=== PATIENT | male | born 1970 | race Caucasian/White ===

== ENCOUNTER 2022-08-02 14:40 | Emergency (ER) | payer OTHER, SELFPAY ==
[2022-08-02] VITALS (8 sets, daily range): BP systolic 170–226; BP diastolic 100–168; PULSE 96; RESP 18; TEMP 36.9; O2SAT 97–100; BMI 42.2
--- NOTE | 2022-08-02 15:47 | W.ED.ABDPA2 ---
HPI - Abdominal Pain General: Chief Complaint: Abdominal Pain Stated Complaint: Sent from , possible appy Time Seen by Provider: 08/02/22 15:44 Source: patient Mode of arrival: ambulatory History of Present Illness: 52 yo male resents emergency room complaining of 2 weeks of abdominal pain he had localizes it to the right lower quadrant. No vomiting or diarrhea. Pain has been sharp and intermittent in nature worse after he has a bowel movement. He denies any medication on hematemesis cough cramps he has a history of renal stones he has not had any hematuria he states he does not feel like what he had in the past with nephrolithiasis. MD elicited complaint: abdominal pain Pertinent past history: none Onset (ago): hour(s) Pain Consistency: constant Location: None Severity: moderate Quality: stabbing and sharp Radiation: none Migration to: no migration Exacerbating factors: nothing Associated Symptoms: Denies anorexia, belching, bloating, change in bowel habits, change in stool character, chills, coffee ground emesis, constipation, GI cramping, diarrhea, dyspepsia, dysuria, excessive flatus, fever(s), heartburn, hematochezia, hematuria, hematemesis, fecal incontinence, loose stools, melena, nausea, poor appetite, syncope and vomiting Review of Systems Const: Denies: fever(s), chills, fatigue or malaise ENMT: Denies: throat pain, ear or mastoid pain, nasal discharge or nasal congestion Card: Denies: syncope Resp: Denies: dyspnea, productive cough or non-productive cough GI: Denies: abdominal pain, nausea, vomiting, hematemesis, coffee ground emesis, heartburn, diarrhea, constipation, bloating, GI cramping, belching, excessive flatus, fecal incontinence, change in bowel habits, change in stool character, hematochezia or melena : Denies: dysuria, urinary frequency, urinary urgency or hematuria Skin/Breast: Denies: rash or pruritus PFSH ED PFSH: Medical History (Updated 08/02/22 @ 18:05 by Ned Velazquez DO) Morbid obesity Surgical History (Updated 08/02/22 @ 17:01 by Ned Velazquez DO) No pertinent past surgical history Physical Exam Const: COMMON NORMALS: no acute distress GENERAL APPEARANCE: cooperative and comfortable ORIENTATION/CONSCIOUSNESS: Yes awake, Yes oriented to person, Yes oriented to place and Yes oriented to time HENMT: COMMON NORMALS: normocephalic, atraumatic and hearing grossly normal bilaterally HEAD & SCALP: normocephalic and atraumatic Resp: COMMON NORMALS: normal respiratory effort, No retractions, No use of accessory muscles and clear to auscultation bilaterally AUSCULTATION: clear to auscultation bilaterally Cardio: COMMON NORMALS: regular rate, regular rhythm and No murmurs present (Cardio) RATE: regular rate RHYTHM: regular rhythm GI: COMMON NORMALS: No hepatosplenomegaly present AUSCULTATION: Yes normoactive bowel sounds PALPATION: Yes Tenderness to palpation present (GI) Details: RLQ, No Guarding due to palpation present (GI) and Yes No hepatosplenomegaly present Extremity: COMMON NORMALS: normal to inspection, capillary refill normal, no clubbing, cyanosis or edema, no calf tenderness and no pedal edema Neuro: SENSORIUM/ORIENTATION: Yes oriented to person, Yes oriented to place and Yes oriented to time Skin: COMMON NORMALS: no rashes or lesions noted GENERAL SKIN EXAM: no rashes or lesions noted Course Vital Signs: Vital signs: Vital Signs Temperature 98.4 F 08/02/22 14:59 Pulse Rate 96 08/02/22 14:59 Respiratory Rate 18 08/02/22 14:59 Blood Pressure 170/100 08/02/22 18:24 Pulse Oximetry 100 08/02/22 18:00 Oxygen Delivery Me thod 08/02/22 16:13 MDM - Abdominal Pain Medical Decision Making Labs imaging and EKG reviewed. CT does not show any acute changes. Laboratory tests unremarkable. Reviewed with the patient encouraged him to use [id number] PPI. Secondarily he has significant hypertension he states he is notices before whenever he spent at the doctor's office or any kind of medical encounter was given hydralazine and amlodipine here as his blood pressure was quite significantly elevated will discharge home on 5 mg of amlodipine daily. Patient has in the past when he is taking antihypertensives when he gets home he ends up being hypotensive. Advised him to follow-up with his primary care doctor within the next 7 to 10 days to reevaluate if his hypotension persists may need further adjustments. Return if he has more abdominal pain or other issues. Medical Records I reviewed the patient's medical records. Lab Data I reviewed the patient's lab results. 08/02/22 16:00 08/02/22 16:00 Labs/Radiology: Radiology Impressions Abdomen/Pelvis CT 08/02/22 16:06 IMPRESSION: 1. No acute abnormality in the abdomen or pelvis. 2. Bilateral nonobstructing renal stones. The largest on in the left kidney is in the left renal pelvis. No hydroureteronephrosis. 3. Incidental/nonacute findings are listed in the report. Laboratory Results WBC 8.3 10^3/uL (4.0-10.0) 08/02/22 16:00 RBC 5.37 10^6/uL (4.1-5.3) H 08/02/22 16:00 Hgb 16.9 g/dL (11.7-16.6) H 08/02/22 16:00 Hct 49.0 % (42.0-52.0) 08/02/22 16:00 MCV 91.2 fl (80-94) 08/02/22 16:00 MCH 31.5 pg (28.0-34.0) 08/02/22 16:00 MCHC 34.5 g/dL (30.0-36.0) 08/02/22 16:00 RDW 12.1 % (12.1-15.1) 08/02/22 16:00 Plt Count 242 10^3/cmm (130-400) 08/02/22 16:00 MPV 10.2 fL (7.4-10.4) 08/02/22 16:00 Neut % (Auto) 61.1 % 08/02/22 16:00 Lymph % (Auto) 29.4 % 08/02/22 16:00 [place] % (Auto) 6.7 % 08/02/22 16:00 Eos % (Auto) 1.6 % 08/02/22 16:00 Baso % (Auto) 1.0 % 08/02/22 16:00 Neut # (Auto) 5.06 10^3/uL (1.8-7.7) 08/02/22 16:00 Lymph # (Auto) 2.4 10^3/uL (0.8-4.8) 08/02/22 16:00 [place] # (Auto) 0.6 10^3/uL (0.2-0.9) 08/02/22 16:00 Eos # (Auto) 0.1 10^3/uL (0.0-0.8) 08/02/22 16:00 Baso # (Auto) 0.1 10^3/uL (0.0-0.1) 08/02/22 16:00 Nucleated RBC % (auto) 0 % 08/02/22 16:00 Nucleated RBCs # 0.0 /100WBC 08/02/22 16:00 Sodium 141 mmol/L (136-145) 08/02/22 16:00 Potassium 4.0 mmol/L (3.5-5.1) 08/02/22 16:00 Chloride 103 mmol/L (98-107) 08/02/22 16:00 Carbon Dioxide 28 mmol/L (22-29) 08/02/22 16:00 Anion Gap 14.0 (5-19) 08/02/22 16:00 BUN 14 mg/dL (6-20) 08/02/22 16:00 Creatinine 0.8 mg/dL (0.7-1.2) 08/02/22 16:00 GFR Calculation 102.3 mL/min (90-130) 08/02/22 16:00 Glucose 93 mg/dL (65-115) 08/02/22 16:00 Calculated Osmolality 292 mOsm/kg (285-295) 08/02/22 16:00 Calcium 10.5 mg/dL (8.5-10.5) 08/02/22 16:00 Total Bilirubin 0.5 mg/dL (0.15-1.2) 08/02/22 16:00 AST 20 U/L (0-40) 08/02/22 16:00 ALT 25 U/L (0-41) 08/02/22 16:00 Alkaline Phosphatase 124 U/L (40-130) 08/02/22 16:00 Total Protein 7.9 g/dL (6.6-8.7) 08/02/22 16:00 Albumin 4.6 g/dL (3.5-5.2) 08/02/22 16:00 Globulin 3.3 g/dL (1.3-4.6) 08/02/22 16:00 Lipase 12 U/L (13-60) L 08/02/22 16:00 Discharge Plan Discharge Patient Disposition: Home Clinical Impression: Abdominal pain, Benign essential HTN Condition: Stable Prescriptions: New amlodipine 5 mg tablet 5 mg PO DAILY Qty: 30 0RF Discharge Orders: Discharge ED (Routine); Ordered 08/02/22 Ordered By: Ned Velazquez Referrals: Melanie Bocanegra FNP [Primary Care Provider] - Discharge Diet: Usual diet Discharge Activity: Increase activity as tolerated Patient Instructions: Abdominal Pain (ED), Opioid Safety, Pain Management Activity Restrictions/Additional Instructions: You are seen for abdominal pain emergency room your laboratory tests and your CT of your abdomen were unremarkable. Incidental notation of your blood pressure being markedly elevated recommend that you start amlodipine 5 mg daily follow-up with your primary care doctor within the next 7 to 10 days. If you have continued symptoms of abdominal pain recommend starting [id number] Pepcid or omeprazole and following up with your doctor for further evaluation. Coding Level of Care Code ED Weight Yardage Checker for Jesu Nash
--- NOTE | 2022-08-02 16:06 | CTR_ITS ---
PROCEDURE INFORMATION: Exam: CT Abdomen And Pelvis Without Contrast Exam date and time: 08/02/2022 4:29 PM Age: 52 years old Clinical indication: Pain; Other: Rlq; Additional info: Abdominal pain TECHNIQUE: Imaging protocol: Computed tomography of the abdomen and pelvis without contrast. Sagittal and coronal reformatted images were created and reviewed. Radiation optimization: All CT scans at this facility use at least one of these dose optimization techniques: automated exposure control; mA and/or kV adjustment per patient size (includes targeted exams where dose is matched to clinical indication); or iterative reconstruction. COMPARISON: No relevant prior studies available. RADIATION DOSE METRICS: Total DLP (mGy-cm): 1633.43 FINDINGS: Limitations: Evaluation of solid organs and vasculature is limited without intravenous contrast. Lungs: Visualized lungs are clear. Pleural spaces: No pleural effusion. Heart: Visualized portions of the heart are unremarkable. Liver: The liver is unremarkable. Gallbladder and bile ducts: The gallbladder is unremarkable. No biliary ductal dilatation. Pancreas: The pancreas is unremarkable. No pancreatic ductal dilatation. Spleen: The spleen is unremarkable. Adrenal glands: The right and left adrenal glands are unremarkable. Kidneys and ureters: Nonobstructing stones in both right and left kidneys. Largest on the right measures 4 mm. Largest on the left is in the left renal pelvis and measures 6 mm. The right and left ureters are unremarkable. No hydroureteronephrosis. Stomach and bowel: No obstruction. No mucosal thickening. Appendix: The appendix is visualized and is unremarkable. No findings to suggest acute appendicitis. Intraperitoneal space: No free intraperitoneal air. No ascites. No loculated fluid collections to suggest an abscess. Vasculature: No evidence for aortic aneurysm. Lymph nodes: No lymphadenopathy. Urinary bladder: The bladder is unremarkable. Reproductive: Nonspecific parenchymal calcifications in the prostate gland. Bones/joints: Mild degenerative changes in the visualized spine. Soft tissues: No acute abnormality in the extra-abdominal soft tissues. CT/CT abdomen pelvis wo con [id number] IMPRESSION: 1. No acute abnormality in the abdomen or pelvis. 2. Bilateral nonobstructing renal stones. The largest on in the left kidney is in the left renal pelvis. No hydroureteronephrosis. 3. Incidental/nonacute findings are listed in the report.
[2022-08-02 16:18] LABS: Basophils # 0.1 10^3/uL (0.0-0.1); Eosinophils # 0.1 10^3/uL (0.0-0.8); Eosinophils % 1.6 %; Hemoglobin 16.9 g/dL (11.7-16.6); Lymphocytes # 2.4 10^3/uL (0.8-4.8); Lymphocytes % 29.4 %; Mean Corpuscular HGB Conc 34.5 g/dL (30.0-36.0); Mean Corpuscular Hemoglobin 31.5 pg (28.0-34.0); Mean Corpuscular Volume 91.2 fl (80-94); Mean Platelet Volume 10.2 fL (7.4-10.4); Monocytes # 0.6 10^3/uL (0.2-0.9); Monocytes % 6.7 %; Neutrophils # 5.06 10^3/uL (1.8-7.7); Neutrophils % 61.1 %; Nucleated Red Blood Cells % 0 %; Platelet Count 242 10^3/cmm (130-400); Red Blood Count 5.37 10^6/uL (4.1-5.3); Red Cell Distribution Width 12.1 % (12.1-15.1); White Blood Count 8.3 10^3/uL (4.0-10.0)
[2022-08-02 16:30] LABS: Alanine Aminotransferase 25 U/L (0-41); Albumin Level 4.6 g/dL (3.5-5.2); Alkaline Phosphatase 124 U/L (40-130); Aspartate Amino Transferase 20 U/L (0-40); Blood Urea Nitrogen 14 mg/dL (6-20); Calcium 10.5 mg/dL (8.5-10.5); Carbon Dioxide 28 mmol/L (22-29); Chloride 103 mmol/L (98-107); Globulin 3.3 g/dL (1.3-4.6); Glomerular Filtration Rate 102.3 mL/min (90-130); Glucose 93 mg/dL (65-115); Lipase 12 U/L (13-60); Osmolality Calculated 292 mOsm/kg (285-295); Sodium 141 mmol/L (136-145); Total Bilirubin 0.5 mg/dL (0.15-1.2); Total Protein 7.9 g/dL (6.6-8.7)
[2022-08-02] MEDS: hyDRALAzine 20 mg/mL INJ 1 mL IVP ×2 (17:20→17:51)
[2022-08-02] MEDS: amlodipine 10 mg Tablet PO (17:51)
== END 2022-08-02 18:31 | disposition home or self-care (01) ==
PROVIDERS: Emergency Provider Family Medicine; PCP Registered Nurse
DX: R10.31 Right lower quadrant pain (principal); I10 Essential (primary) hypertension
CPT/HCPCS: 74176; 80053; 83690; 85025; 96374; 96375; 99285; J0360

== ENCOUNTER 2024-08-28 05:58 | Observation (INO) | payer OTHER, SELFPAY ==
[2024-08-28] VITALS (21 sets, daily range): BP systolic 138–198; BP diastolic 105–136; PULSE 77–125; RESP 14–19; TEMP 36.4–36.8; O2SAT 93–100; BMI 42.2
--- NOTE | 2024-08-28 06:09 | ECG_ITS ---
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 Measurements Intervals [place] Rate: 91 P: 27 MD: 136 QRS: 8 QRSD: 98 T: 13 QT: 337 QTc: 416 Interpretive Statements SINUS RHYTHM MODERATE VOLTAGE CRITERIA FOR LVH, CONSIDER NORMAL VARIANT [MEETS CRITERIA IN ONE OF: R(aVL), S(V1), R(V5), R(V5/V6)+S(V1)] No previous ECG available for comparison Electronically Signed On 08-29-2024 09:03:43 [employer]POR[employer] by Dieter Llanes M.D. [id number]
--- NOTE | 2024-08-28 06:12 | CTR_ITS ---
PROCEDURE INFORMATION: Exam: CT Head Without Contrast Exam date and time: 08/28/2024 6:16 AM Age: 54 years old Clinical indication: Stroke-like symptoms; Lt upper extremity and lt lower extremity weakness; Additional info: Symptoms of acute stroke TECHNIQUE: Imaging protocol: Computed tomography of the head without contrast. Radiation optimization: All CT scans at this facility use at least one of these dose optimization techniques: automated exposure control; mA and/or kV adjustment per patient size (includes targeted exams where dose is matched to clinical indication); or iterative reconstruction. Other technique: STROKE PROTOCOL was implemented. COMPARISON: No relevant prior studies available. 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 Probable small remote infarct in the corpus callosum. Patchy hypoattenuation in the periventricular and subcortical white matter, consistent with chronic small vessel ischemia. No CT evidence of acute ischemia. No acute hemorrhage. No mass effect or midline shift. Cerebral ventricles: No ventriculomegaly. Paranasal sinuses: Visualized sinuses are unremarkable. No fluid levels. Mastoid air cells: Visualized mastoid air cells are well aerated. Bones: Unremarkable. No acute fracture. Soft tissues: A number of partially calcified subcutaneous nodules are seen in the scalp. CT/CT head thrombolytic 14049 IMPRESSION: No acute intracranial abnormality. Please note that MRI is more sensitive for early changes of acute ischemia. ASSESSMENT: ASPECTS (Dorie Stroke Program Early CT Score) is 10.
[2024-08-28 06:18] LABS: Glucose Point of Care 107 mg/dL (70-110)
[2024-08-28 06:20] LABS: Basophils # 0.1 10^3/uL (0.0-0.1); Basophils % 1.1 %; Eosinophils # 0.1 10^3/uL (0.0-0.8); Eosinophils % 1.6 %; Hematocrit 48.5 % (37-53); Lymphocytes # 2.4 10^3/uL (0.8-4.8); Lymphocytes % 29.4 %; Mean Corpuscular HGB Conc 34.8 g/dL (30-55); Mean Corpuscular Hemoglobin 31.5 pg (27-33); Mean Corpuscular Volume 90.3 fl (82-101); Mean Platelet Volume 9.6 fL (7.4-10.4); Monocytes # 0.7 10^3/uL (0.2-0.9); Monocytes % 7.9 %; Neutrophils # 4.91 10^3/uL (1.8-7.7); Neutrophils % 59.8 %; Nucleated Red Blood Cells % 0 %; Platelet Count 255 10^3/cmm (157-399); Red Blood Count 5.37 10^6/uL (3.85-5.65); Red Cell Distribution Width 12.4 % (12.1-15.1); White Blood Count 8.22 10^3/uL (3.29-11.43)
[2024-08-28 06:33] LABS: INR 0.78 (0.8-1.2)
[2024-08-28 06:37] LABS: Alanine Aminotransferase 22 U/L (0-41); Albumin Level 4.6 g/dL (3.5-5.2); Alkaline Phosphatase 139 U/L (40-130); Anion Gap 15.5 (5-19); Aspartate Amino Transferase 18 U/L (0-40); Blood Urea Nitrogen 13 mg/dL (6-20); Calcium 10.1 mg/dL (8.5-10.5); Carbon Dioxide 27 mmol/L (22-29); Chloride 102 mmol/L (98-107); Creatinine Clr Calc Pharmacy 143.9506; Globulin 2.9 g/dL (1.3-4.6); Glomerular Filtration Rate 88.6 mL/min (90-130); Glucose 114 mg/dL (65-115); Osmolality Calculated 291 mOsm/kg (285-295); Potassium 4.5 mmol/L (3.5-5.1); Sodium 140 mmol/L (136-145); Total Bilirubin 0.4 mg/dL (0.15-1.2); Total Protein 7.5 g/dL (6.6-8.7)
--- NOTE | 2024-08-28 06:39 | W.ED.WEAKNES ---
HPI - Weakness General: Chief complaint: Weakness Stated complaint: left side weakness and numbess Time Seen by Provider: 08/28/24 06:10 PFSH ED PFSH: Medical History (Updated 08/10/22 @ 00:01 by WIL Elise) Morbid obesity Surgical History (Updated 08/02/22 @ 17:01 by Ned Velazquez DO) No pertinent past surgical history Course Vital Signs: Vital signs: Vital Signs Temperature 97.7 F 08/28/24 06:02 Pulse Rate 103 H 08/28/24 06:02 Respiratory Rate 18 08/28/24 06:02 Blood Pressure 195/111 08/28/24 06:02 Pulse Oximetry 97 08/28/24 06:02 MDM - Weakness Lab Data 08/28/24 06:15 08/28/24 06:[address] 08/28/24 06:12 IMPRESSION: No acute intracranial abnormality. Please note that MRI is more sensitive for early changes of acute ischemia. ASSESSMENT: ASPECTS (Dorie Stroke Program Early CT Score) is 10. Laboratory Results WBC 8.22 10^3/uL (3.29-11.43) 08/28/24 06:15 RBC 5.37 10^6/uL (3.85-5.65) 08/28/24 06:15 Hgb 16.90 g/dL (11.27-16.99) 08/28/24 06:15 Hct 48.5 % (37-53) 08/28/24 06:15 MCV 90.3 fl (82-101) 08/28/24 06:15 MCH 31.5 pg (27-33) 08/28/24 06:15 MCHC 34.8 g/dL (30-55) 08/28/24 06:15 RDW 12.4 % (12.1-15.1) 08/28/24 06:15 Plt Count 255 10^3/cmm (157-399) 08/28/24 06:15 MPV 9.6 fL (7.4-10.4) 08/28/24 06:15 Neut % (Auto) 59.8 % 08/28/24 06:15 Lymph % (Auto) 29.4 % 08/28/24 06:15 [place] % (Auto) 7.9 % 08/28/24 06:15 Eos % (Auto) 1.6 % 08/28/24 06:15 Baso % (Auto) 1.1 % 08/28/24 06:15 Neut # (Auto) 4.91 10^3/uL (1.8-7.7) 08/28/24 06:15 Lymph # (Auto) 2.4 10^3/uL (0.8-4.8) 08/28/24 06:15 [place] # (Auto) 0.7 10^3/uL (0.2-0.9) 08/28/24 06:15 Eos # (Auto) 0.1 10^3/uL (0.0-0.8) 08/28/24 06:15 Baso # (Auto) 0.1 10^3/uL (0.0-0.1) 08/28/24 06:15 Nucleated RBC % (auto) 0 % 08/28/24 06:15 Nucleated RBCs # 0.0 /100WBC 08/28/24 06:15 PT 11.40 SECONDS (12.1-14.9) L 08/28/24 06:15 INR 0.78 (0.8-1.2) L 08/28/24 06:15 APTT 28.0 SECONDS (23.9-36.7) 08/28/24 06:15 Sodium 140 mmol/L (136-145) 08/28/24 06:15 Potassium 4.5 mmol/L (3.5-5.1) 08/28/24 06:15 Chloride 102 mmol/L (98-107) 08/28/24 06:15 Carbon Dioxide 27 mmol/L (22-29) 08/28/24 06:15 Anion Gap 15.5 (5-19) 08/28/24 06:15 BUN 13 mg/dL (6-20) 08/28/24 06:15 Creatinine 0.9 mg/dL (0.7-1.2) 08/28/24 06:15 GFR Calculation 88.6 mL/min (90-130) L 08/28/24 06:15 Glucose 114 mg/dL (65-115) 08/28/24 06:15 POC Glucose 107 mg/dL (70-110) 08/28/24 06:06 Calculated Osmolality 291 mOsm/kg (285-295) 08/28/24 06:15 Calcium 10.1 mg/dL (8.5-10.5) 08/28/24 06:15 Total Bilirubin 0.4 mg/dL (0.15-1.2) 08/28/24 06:15 AST 18 U/L (0-40) 08/28/24 06:15 ALT 22 U/L (0-41) 08/28/24 06:15 Alkaline Phosphatase 139 U/L (40-130) H 08/28/24 06:15 Total Protein 7.5 g/dL (6.6-8.7) 08/28/24 06:15 Albumin 4.6 g/dL (3.5-5.2) 08/28/24 06:15 Globulin 2.9 g/dL (1.3-4.6) 08/28/24 06:15 Discharge Plan Discharge Condition: Stable Prescriptions: No Action amlodipine 5 mg tablet 5 mg PO DAILY Qty: 30 0RF Referrals: Melanie Bocanegra FNP [Primary Care Provider] - Coding Level of Care Code ED Plaster Tender for Chg Fwd Related Data Previous Rx's Medication Instructions Recorded amlodipine 5 mg tablet 5 mg PO DAILY #30 tabs 08/02/22 Allergies Allergy/AdvReac Type Severity Reaction Status Date / Time No Known Allergies Allergy Verified 08/28/24 06:02 NIH stroke score NIHSS Level Of Consciousness - 1a: 0 Level Of Consciousness Questions - 1b: Both Correct Level Of Consciousness Commands - 1c: Both Correct Best Gaze - 2: Normal Visual [place] - 3: No Visual Loss Facial Palsy - 4: Normal Motor Arm Right - 5: Drift Motor Leg Right - 6: Effort Against [place] Motor Leg Left - 6: No Drift Limb Ataxia - 7: Absent Sensory - 8: Normal Best Language - 9: No Aphasia Dysarthia - 10: Normal Extinction And Inattention - 11: 0
--- NOTE | 2024-08-28 06:41 | W.ED.WEAKNES ---
HPI - Weakness General: Chief complaint: Weakness Stated complaint: left side weakness and numbess Time Seen by Provider: 08/28/24 06:10 Source: patient Mode of arrival: ambulatory Limitations: no limitations History of Present Illness: 54-year-old male has a history of hypertension states he went bed last night at 8 PM he states he woke up this morning around 2 AM states when he got up he noticed he is having some right sided weakness phalanx having a hard time walking. He states that he does have right sided arm leg weakness is able to walk but states he feels like the right leg is very weak he denies any headache denies any chest pain he denies slurred speech. No history of stroke in the past. Associated symptoms: Denies chest pain, chills, fever(s), headache(s), nausea or vomiting Review of Systems Const: Denies: fever(s), chills, body aches or change in appetite ENMT: Denies: throat pain or dental pain Card: Denies: chest pain Resp: Denies: dyspnea GI: Denies: abdominal pain, nausea, vomiting or diarrhea Musc: Denies: neck pain or back pain Skin/Breast: Denies: rash Neuro: Denies: headache(s) PFSH ED PFSH: Medical History (Updated 08/10/22 @ 00:01 by WIL Elise) Morbid obesity Surgical History (Updated 08/02/22 @ 17:01 by Ned Velazquez DO) No pertinent past surgical history Physical Exam Const: COMMON NORMALS: patient oriented x3 HENMT: COMMON NORMALS: normocephalic and atraumatic HEAD & SCALP: normocephalic and atraumatic Eye: COMMON NORMALS: Equal, round and reactive pupils present and EOMs intact bilaterally PUPIL: Yes Equal, round and reactive pupils present Neck/C-Spine: COMMON NORMALS: full ROM and supple Chest: COMMONS NORMALS: normal inspection of the chest Resp: COMMON NORMALS: normal respiratory effort, No retractions, No use of accessory muscles and clear to auscultation bilaterally AUSCULTATION: clear to auscultation bilaterally Cardio: COMMON NORMALS: regular rate, regular rhythm and No murmurs present (Cardio) RATE: regular rate RHYTHM: regular rhythm GI: COMMON NORMALS: Normal to inspection, nondistended, normoactive bowel sounds present, Soft to palpation, non-tender and no masses PALPATION: Yes Soft to palpation Extremity: COMMON NORMALS: normal to inspection and full ROM Neuro: COMMON NORMALS: patient oriented x3 CRANIAL NERVES: Yes CN normal except as noted SPEECH: speech normal OTHER: No left-sided weakness has a slight right sided arm drift worsening drift on the right leg. Psych: COMMON NORMALS: mental status grossly normal, Normal thought process present and cooperative THOUGHT PROCESS: Normal thought process present Skin: COMMON NORMALS: no rashes or lesions noted and no wounds GENERAL SKIN EXAM: no rashes or lesions noted Course Vital Signs: Vital signs: Vital Signs Temperature 97.7 F 08/28/24 06:02 Pulse Rate 125 H 08/28/24 07:01 Respiratory Rate 18 08/28/24 06:02 Blood Pressure 198/131 08/28/24 07:01 Pulse Oximetry 93 08/28/24 07:01 MDM - Weakness Medical Decision Making Patient presents with right sided weakness possible CVA he is not a TNKase candidate as his last known well was last night. CTA showed no large clot he is not a thrombectomy candidate I spoke to the hospitalist will admit at this time for further workup Medical Records I reviewed the patient's medical records. Lab Data I reviewed the patient's lab results. 08/28/24 06:15 08/28/24 06:[address] 08/28/24 06:12 IMPRESSION: No acute intracranial abnormality. Please note that MRI is more sensitive for early changes of acute ischemia. ASSESSMENT: ASPECTS ([place] Stroke Program Early CT Score) is 10. ADDENDUM: 08/28/24 0705 Confirmed receipt of report by Dr. Andino, who has no further questions. ADDENDUM: 08/28/24 6460 The scalp lesions are likely to reflect sebaceous cyst. Head/Neck CTA 08/28/24 06:42 IMPRESSION: 1. No acute vascular abnormality. 2. Additional findings, as above. IMPRESSION: 1. No acute vascular abnormality. 2. Additional findings, as above. REFERENCES: NASCET CRITERIA. The degree of stenosis in the cervical segment of the internal carotid artery is based on NASCET criteria. Normal is no stenosis. Mild is less than 50% stenosis. Moderate is 50-69% stenosis. Severe is 70% to 99% stenosis. Total occlusion is no detectable patent lumen. Laboratory Results WBC 8.22 10^3/uL (3.29-11.43) 08/28/24 06:15 RBC 5.37 10^6/uL (3.85-5.65) 08/28/24 06:15 Hgb 16.90 g/dL (11.27-16.99) 08/28/24 06:15 Hct 48.5 % (37-53) 08/28/24 06:15 MCV 90.3 fl (82-101) 08/28/24 06:15 MCH 31.5 pg (27-33) 08/28/24 06:15 MCHC 34.8 g/dL (30-55) 08/28/24 06:15 RDW 12.4 % (12.1-15.1) 08/28/24 06:15 Plt Count 255 10^3/cmm (157-399) 08/28/24 06:15 MPV 9.6 fL (7.4-10.4) 08/28/24 06:15 Neut % (Auto) 59.8 % 08/28/24 06:15 Lymph % (Auto) 29.4 % 08/28/24 06:15 [place] % (Auto) 7.9 % 08/28/24 06:15 Eos % (Auto) 1.6 % 08/28/24 06:15 Baso % (Auto) 1.1 % 08/28/24 06:15 Neut # (Auto) 4.91 10^3/uL (1.8-7.7) 08/28/24 06:15 Lymph # (Auto) 2.4 10^3/uL (0.8-4.8) 08/28/24 06:15 [place] # (Auto) 0.7 10^3/uL (0.2-0.9) 08/28/24 06:15 Eos # (Auto) 0.1 10^3/uL (0.0-0.8) 08/28/24 06:15 Baso # (Auto) 0.1 10^3/uL (0.0-0.1) 08/28/24 06:15 Nucleated RBC % (auto) 0 % 08/28/24 06:15 Nucleated RBCs # 0.0 /100WBC 08/28/24 06:15 PT 11.40 SECONDS (12.1-14.9) L 08/28/24 06:15 INR 0.78 (0.8-1.2) L 08/28/24 06:15 APTT 28.0 SECONDS (23.9-36.7) 08/28/24 06:15 Sodium 140 mmol/L (136-145) 08/28/24 06:15 Potassium 4.5 mmol/L (3.5-5.1) 08/28/24 06:15 Chloride 102 mmol/L (98-107) 08/28/24 06:15 Carbon Dioxide 27 mmol/L (22-29) 08/28/24 06:15 Anion Gap 15.5 (5-19) 08/28/24 06:15 BUN 13 mg/dL (6-20) 08/28/24 06:15 Creatinine 0.9 mg/dL (0.7-1.2) 08/28/24 06:15 GFR Calculation 88.6 mL/min (90-130) L 08/28/24 06:15 Glucose 114 mg/dL (65-115) 08/28/24 06:15 POC Glucose 107 mg/dL (70-110) 08/28/24 06:06 Calculated Osmolality 291 mOsm/kg (285-295) 08/28/24 06:15 Calcium 10.1 mg/dL (8.5-10.5) 08/28/24 06:15 Total Bilirubin 0.4 mg/dL (0.15-1.2) 08/28/24 06:15 AST 18 U/L (0-40) 08/28/24 06:15 ALT 22 U/L (0-41) 08/28/24 06:15 Alkaline Phosphatase 139 U/L (40-130) H 08/28/24 06:15 Total Protein 7.5 g/dL (6.6-8.7) 08/28/24 06:15 Albumin 4.6 g/dL (3.5-5.2) 08/28/24 06:15 Globulin 2.9 g/dL (1.3-4.6) 08/28/24 06:15 Urine Color Yellow (Yellow) 08/28/24 07:06 Urine Appearance Clear (CLEAR) 08/28/24 07:06 Urine pH 7.5 (5-7) 08/28/24 07:06 Ur Specific [place] 1.026 (1.005-1.030) 08/28/24 07:06 Urine Protein Trace (Negative) A 08/28/24 07:06 Urine Glucose (UA) Negative (Normal) 08/28/24 07:06 Urine Ketones Negative (Negative) 08/28/24 07:06 Urine Blood Negative (Negative) 08/28/24 07:06 Urine Nitrate Negative (Negative) 08/28/24 07:06 Urine Bilirubin Negative (Negative) 08/28/24 07:06 Urine Urobilinogen 1.0 mg/dL (Negative) 08/28/24 07:06 Ur Leukocyte Esterase Negative (Negative) 08/28/24 07:06 Urine RBC 3-5 /hpf (0-2) 08/28/24 07:06 Urine WBC 0-5 /hpf (0-5) 08/28/24 07:06 Ur Squamous Epith Cells 0-5 /hpf (0-5) 08/28/24 07:06 Amorphous Sediment Not Reportable 08/28/24 07:06 Urine Bacteria None seen /hpf (NONE) 08/28/24 07:06 Hyaline Casts 0.81 /lpf 08/28/24 07:06 Urine Opiates Screen Negative ng/mL (Negative) 08/28/24 07:06 Ur Barbiturates Screen Negative ng/mL (Negative) 08/28/24 07:06 Ur Phencyclidine Scrn Negative ng/mL (Negative) 08/28/24 07:06 Ur Amphetamines Screen Negative ng/mL (Negative) 08/28/24 07:06 U Benzodiazepines Scrn Negative ng/mL (Negative) 08/28/24 07:06 Urine Cocaine Screen Negative ng/mL (Negative) 08/28/24 07:06 U Marijuana (THC) Screen Negative ng/mL (Negative) 08/28/24 07:06 All radiology interpretation(s) finalized by discharge EKG Data EKG 1: I personally reviewed and interpreted this EKG as follows: EKG interpretation date: 08/28/24 EKG interpretation time: 06:09 Interpretation: nsr hr [address] elevation qrs 98 qtc 386 Discharge Plan Discharge Condition: Stable Prescriptions: No Action amlodipine 5 mg tablet 5 mg PO DAILY Qty: 30 0RF Referrals: Melanie Bocanegra FNP [Primary Care Provider] - Coding Level of Care Code ED Software Qa System Specialist for Chg Fwd Related Data Previous Rx's Medication Instructions Recorded amlodipine 5 mg tablet 5 mg PO DAILY #30 tabs 08/02/22 Allergies Allergy/AdvReac Type Severity Reaction Status Date / Time No Known Allergies Allergy Verified 08/28/24 06:02
--- NOTE | 2024-08-28 06:42 | CTR_ITS ---
PROCEDURE INFORMATION: Exam: CTA Head With Contrast, Arteriography Exam date and time: 08/28/2024 6:48 AM Age: 54 years old Clinical indication: Weakness; Additional info: CVA TECHNIQUE: Imaging protocol: Computed tomographic angiography of the head with contrast. Exam focused on the arteries. Axial, coronal and sagittal reformatted images were created and reviewed. 3D rendering (Not supervised by radiologist): MIP and/or 3D reconstructed images were created by the technologist. Radiation optimization: All CT scans at this facility use at least one of these dose optimization techniques: automated exposure control; mA and/or kV adjustment per patient size (includes targeted exams where dose is matched to clinical indication); or iterative reconstruction. Contrast material: OMNI 350; Contrast volume: 100 ml; Contrast route: INTRAVENOUS (IV); COMPARISON: CT head thrombolytic [id number] 08/28/2024 6:16 AM RADIATION DOSE METRICS: Total DLP (mGy-cm): 508.87 FINDINGS: ANTERIOR CIRCULATION: Right internal carotid artery: Intracranial segment is patent with no significant stenosis. No aneurysm. Right middle cerebral artery: No occlusion or significant stenosis. No aneurysm. Right anterior cerebral artery: No occlusion or significant stenosis. No aneurysm. Left internal carotid artery: Intracranial segment is patent with no significant stenosis. No aneurysm. Left middle cerebral artery: No occlusion or significant stenosis. No aneurysm. Left anterior cerebral artery: No occlusion or significant stenosis. No aneurysm. POSTERIOR CIRCULATION: Right vertebral artery: No occlusion or significant stenosis. No aneurysm. Left vertebral artery: No occlusion or significant stenosis. No aneurysm. Basilar artery: No occlusion or significant stenosis. No aneurysm. Right posterior cerebral artery: No occlusion or significant stenosis. No aneurysm. Left posterior cerebral artery: No occlusion or significant stenosis. No aneurysm. Brain: Subtle, patchy areas of hypoattenuation in the periventricular and subcortical white matter, nonspecific but suggestive of mild chronic small vessel ischemic disease. Focal, well-circumscribed hypodensities in the basal ganglia, consistent with chronic lacunar infarcts. No definite mass, mass effect, or midline shift. Cerebral ventricles: No ventriculomegaly. Bones/joints: Unremarkable. No acute fracture. Soft tissues: Scattered sebaceous cysts. PROCEDURE INFORMATION: Exam: CTA Neck With Contrast Exam date and time: 08/28/2024 6:48 AM Age: 54 years old Clinical indication: Weakness; Additional info: CVA TECHNIQUE: Imaging protocol: Computed tomographic angiography of the neck with contrast. Exam focused on the cervical segments of the vasculature. Axial, coronal and sagittal reformatted images were created and reviewed. 3D rendering (Not supervised by radiologist): MIP and/or 3D reconstructed images were created by the technologist. Radiation optimization: All CT scans at this facility use at least one of these dose optimization techniques: automated exposure control; mA and/or kV adjustment per patient size (includes targeted exams where dose is matched to clinical indication); or iterative reconstruction. Contrast material: OMNI 350; Contrast volume: 100 ml; Contrast route: INTRAVENOUS (IV); COMPARISON: CT head thrombolytic [id number] 08/28/2024 6:16 AM RADIATION DOSE METRICS: Total DLP (mGy-cm): 508.87 FINDINGS: Right common carotid artery: No stenosis. No dissection or occlusion. Right internal carotid artery: Normal. Extracranial segment patent with no significant stenosis. No dissection or occlusion. Right external carotid artery: No occlusion or stenosis of the origin. Left common carotid artery: No stenosis. No dissection or occlusion. Left internal carotid artery: Normal. Extracranial segment patent with no significant stenosis. No dissection or occlusion. Left external carotid artery: No occlusion or stenosis of the origin. Right vertebral artery: No stenosis. No dissection or occlusion. Left vertebral artery: No stenosis. No dissection or occlusion. Soft tissues: Unremarkable. Bones/joints: No acute osseous abnormality. Osteopenia. Straightening of the normal cervical lordosis. Mild multilevel spondylosis without significant spinal canal or neural foraminal stenosis. CT/CT angio headneck* [id number] IMPRESSION: 1. No acute vascular abnormality. 2. Additional findings, as above. IMPRESSION: 1. No acute vascular abnormality. 2. Additional findings, as above. REFERENCES: NASCET CRITERIA. The degree of stenosis in the cervical segment of the internal carotid artery is based on NASCET criteria. Normal is no stenosis. Mild is less than 50% stenosis. Moderate is 50-69% stenosis. Severe is 70% to 99% stenosis. Total occlusion is no detectable patent lumen.
[2024-08-28] MEDS: iohexol 350 mg/mL 500 mL Btl (per mL) IV (06:56)
[2024-08-28] MEDS: aspirin 81 mg Chew Tablet 324 MG PO (07:03)
[2024-08-28 07:20] LABS: Amphetamines Screen Urine Negative (Negative); Barbiturates Screen Urine Negative (Negative); Benzodiazepines Screen Urine Negative (Negative); Cocaine Screen Urine Negative (Negative); Opiate Screen Urine Negative (Negative); PCP Screen Urine Negative (Negative); THC Screen Urine Negative (Negative)
[2024-08-28 07:38] LABS: Bilirubin Urine Negative (Negative); Blood Urine Negative (Negative); Glucose Urine UA Negative (Normal); Ketones Urine Negative (Negative); Leukocyte Esterase Urine Negative (Negative); Nitrate Urine Negative (Negative); Protein Urine Trace (Negative); Specific Gravity, Urine 1.026 (1.005-1.030); Urine Appearance Clear (CLEAR); Urine Color Yellow (Yellow); pH Urine 7.5 (5-7)
[2024-08-28 07:40] LABS: Add Urine Microscopic? YES; Bacteria Urine None Seen /hpf; Hyaline Casts Urine 0.81 /lpf; Squamous Epithelial Cell Urine 0-5 /hpf (0-5); WBC Urine 0-5 /hpf (0-5)
--- NOTE | 2024-08-28 12:13 | USCV_ITS ---
Jose Ramon Sebastian Age: 54 Gender: M : 1970 Exam Date: 08/28/2024 13:27 Ordering Phys: Malou Rooney MD Technologist: Exam Location: [facility] [place] Indication: BP: 176 / 111 HR: 75 Rhythm: Sinus Technical Quality: Adequate MEASUREMENTS (Male / Female) Normal Values 2D ECHO LV Diastolic Diameter PLAX 5.9 cm 4.2 - 5.9 / 3.9 - 5.3 cm IVS Diastolic Thickness 1.3 cm 0.6 - 1.0 / 0.6 - 0.9 cm IVS Systolic Thickness 2.0 cm LVPW Diastolic Thickness 1.6 cm 0.6 - 1.0 / 0.6 - 0.9 cm LVPW Systolic Thickness 1.9 cm LVOT Diameter 2.0 cm LV Ejection Fraction 2D Teich 69.5 % LV Ejection Fraction MOD 4C 66.9 % LV Ejection Fraction MOD 2C 68.4 % LV Ejection Fraction 2C AL 67.5 % LA Diameter 4.6 cm RA Systolic Volume 4C AL 45.8 ml RA Systolic Volume 4C MOD 43.6 ml Aorta at Sinotubular Diameter 3.1 cm IVC Diameter 1.9 cm M-MODE LA Ao Ratio MM 1.0 AV Cusp Separation MM 3.2 cm DOPPLER AV Peak Velocity 161.0 cm/s LVOT Peak Velocity 128.0 cm/s AV Area Cont Eq vti 2.7 cm squared AV Area Cont Eq pk 2.5 cm squared MV Peak Velocity 99.0 cm/s MV Area PHT 3.8 cm squared Mitral E to A Ratio 1.2 TV Peak Velocity 177.0 cm/s TR Peak Velocity 209.0 cm/s TR Peak Gradient 17.5 mmHg TV Peak E Velocity 86.0 cm/s PV Peak Velocity 107.0 cm/s FINDINGS Left Ventricle Left ventricle is normal in size. LV systolic function is normal with EF of 60 to 65%. No regional wall motion abnormalities are seen. Right Ventricle Normal in size and function Right Atrium Normal in size Left Atrium Normal in size Mitral Valve Structurally normal mitral valve. Mild mitral regurgitation. Aortic Valve Structurally normal aortic valve. No significant stenosis or regurgitation. Tricuspid Valve Mild tricuspid regurgitation. Insufficient TR jet to calculate RVSP Pulmonic Valve Not well visualized Pericardium Normal Aorta Normal in size IVC Appears to be normal CONCLUSIONS LV systolic function is normal with 60-65% Mild mitral regurgitation Mild tricuspid regurgitation No comparison studies are available. Dieter Llanes MD (Electronically Signed) Final Date: 29 August 2024 08:17 S
--- NOTE | 2024-08-28 12:15 | P.HP_ITS ---
Providers/Chief Complaint 2 Admitting Physician: Malou Rooney MD Primary Care Provider: JENNI Chinchilla Chief Complaint: left side weakness and numbess History of Present Illness Jose Ramon Sebastian is a 54 year old male with a past medical history of obesity, hypertension who was in his usual state of health until last night when he went to bed. He woke up at 2 AM and noticed right-sided weakness involving his upper and lower extremities. He states he nearly fell out of bed when attempting to walk. He presented to the ER with above complaints. He was out of tenecteplase window by that time. NIH stroke scale was [address] and CTA of the head and neck was without any acute abnormalities. Patient has a history of uncontrolled hypertension, he is on amlodipine and has recently increased his dose to twice a day. No past history of known diabetes mellitus, no past history of stroke. Remote history of smoking quit several years ago. Review of Systems 2 General: Reports: 10 or more systems reviewed and unremarkable except in HPI and below Const: Denies: fever(s), chills or body aches Eyes: Denies: change in vision, blurry vision or photophobia ENMT: Reports: hoarseness; Denies: throat pain, enlarged tonsils, odynophagia or nasal congestion Card: Denies: chest pain, palpitations, irregular heart rhythm, edema, swelling of feet/ankles, lightheadedness, pre-syncope, dyspnea on exertion or orthopnea Resp: Denies: dyspnea, productive cough, non-productive cough, wheezing, stridor, pain on inspiration, change in phlegm color, hemoptysis or chest congestion GI: Denies: abdominal pain, nausea, vomiting, hematemesis, coffee ground emesis, dysphagia, heartburn, diarrhea, constipation, GI cramping, change in stool character, hematochezia or melena : Denies: flank pain, dysuria, urinary frequency, urinary urgency, urinary hesitancy or hematuria Musc: Denies: neck pain, back pain, extremity pain, joint swelling, joint warmth or deformity Neuro: Denies: headache(s), numbness in extremities, weakness in extremities, sensory changes, difficulty walking, frequent falls, dizziness, vertigo, behavioral changes, Slurred speech present or seizure-like activity Psych: Denies: anxiety, depression, suicidal ideation or homicidal ideation Endo: Denies: polyuria, polydipsia, tired all the time, cold intolerance or hot flashes John/Lymph: Denies: easy bruising or easy bleeding Medications/Allergies Home Medications Medication Instructions Recorded Confirmed Last Taken Type amlodipine 5 mg tablet 5 mg PO DAILY #30 tabs 08/02/22 08/28/24 08/27/24 08:00 Rx Allergies Allergy/AdvReac Type Severity Reaction Status Date / Time No Known Allergies Allergy Verified 08/28/24 06:02 PFSH Acute 2 PFSH: Medical History Morbid obesity Surgical History No pertinent past surgical history Vitals/I&O/Wt Last Vital Signs Temp 97.7 F 08/28/24 06:02 Pulse 90 08/28/24 11:42 Resp 18 08/28/24 06:02 BP 184/131 08/28/24 11:42 Pulse Ox 98 08/28/24 11:42 08/27/24 08/28/24 08/28/24 22:59 06:59 14:59 Intake Total 0 / 0 Balance 0 / 0 Weight last 48 hrs Weight 145.15 kg Physical Exam 2 Narrative: General: No acute distress, AO x3 HEENT: PERRLA, pupils bilaterally equal and reactive, pallors not present Chest: Normal vesicular breath sounds, no added sounds, equal good air entry bilaterally CVS: S1-S2 regular, no murmurs, no tachycardia, no gallops, no rubs Abdomen: Soft, nontender, no organomegaly, bowel sounds present Neuro: RUE and RLE power 4/5 Data 08/28/24 06:15 08/28/24 06:15 Other data: Radiology Impressions Head CT 08/28/24 06:12 IMPRESSION: No acute intracranial abnormality. Please note that MRI is more sensitive for early changes of acute ischemia. ASSESSMENT: ASPECTS ([place] Stroke Program Early CT Score) is 10. ADDENDUM: 08/28/24 0721 Confirmed receipt of report by Dr. Andino, who has no further questions. ADDENDUM: 08/28/24 3590 The scalp lesions are likely to reflect sebaceous cyst. Head/Neck CTA 08/28/24 06:42 IMPRESSION: 1. No acute vascular abnormality. 2. Additional findings, as above. IMPRESSION: 1. No acute vascular abnormality. 2. Additional findings, as above. REFERENCES: NASCET CRITERIA. The degree of stenosis in the cervical segment of the internal carotid artery is based on NASCET criteria. Normal is no stenosis. Mild is less than 50% stenosis. Moderate is 50-69% stenosis. Severe is 70% to 99% stenosis. Total occlusion is no detectable patent lumen. Laboratory Results WBC 8.22 10^3/uL (3.29-11.43) 08/28/24 06:15 RBC 5.37 10^6/uL (3.85-5.65) 08/28/24 06:15 Hgb 16.90 g/dL (11.27-16.99) 08/28/24 06:15 Hct 48.5 % (37-53) 08/28/24 06:15 MCV 90.3 fl (82-101) 08/28/24 06:15 MCH 31.5 pg (27-33) 08/28/24 06:15 MCHC 34.8 g/dL (30-55) 08/28/24 06:15 RDW 12.4 % (12.1-15.1) 08/28/24 06:15 Plt Count 255 10^3/cmm (157-399) 08/28/24 06:15 MPV 9.6 fL (7.4-10.4) 08/28/24 06:15 Neut % (Auto) 59.8 % 08/28/24 06:15 Lymph % (Auto) 29.4 % 08/28/24 06:15 [place] % (Auto) 7.9 % 08/28/24 06:15 Eos % (Auto) 1.6 % 08/28/24 06:15 Baso % (Auto) 1.1 % 08/28/24 06:15 Neut # (Auto) 4.91 10^3/uL (1.8-7.7) 08/28/24 06:15 Lymph # (Auto) 2.4 10^3/uL (0.8-4.8) 08/28/24 06:15 [place] # (Auto) 0.7 10^3/uL (0.2-0.9) 08/28/24 06:15 Eos # (Auto) 0.1 10^3/uL (0.0-0.8) 08/28/24 06:15 Baso # (Auto) 0.1 10^3/uL (0.0-0.1) 08/28/24 06:15 Nucleated RBC % (auto) 0 % 08/28/24 06:15 Nucleated RBCs # 0.0 /100WBC 08/28/24 06:15 PT 11.40 SECONDS (12.1-14.9) L 08/28/24 06:15 INR 0.78 (0.8-1.2) L 08/28/24 06:15 APTT 28.0 SECONDS (23.9-36.7) 08/28/24 06:15 Sodium 140 mmol/L (136-145) 08/28/24 06:15 Potassium 4.5 mmol/L (3.5-5.1) 08/28/24 06:15 Chloride 102 mmol/L (98-107) 08/28/24 06:15 Carbon Dioxide 27 mmol/L (22-29) 08/28/24 06:15 Anion Gap 15.5 (5-19) 08/28/24 06:15 BUN 13 mg/dL (6-20) 08/28/24 06:15 Creatinine 0.9 mg/dL (0.7-1.2) 08/28/24 06:15 GFR Calculation 88.6 mL/min (90-130) L 08/28/24 06:15 Glucose 114 mg/dL (65-115) 08/28/24 06:15 POC Glucose 107 mg/dL (70-110) 08/28/24 06:06 Estimat Average Glucose 111 08/28/24 12:28 Hemoglobin A1c 5.5 % (4.0-6.0) 08/28/24 12:28 Calculated Osmolality 291 mOsm/kg (285-295) 08/28/24 06:15 Calcium 10.1 mg/dL (8.5-10.5) 08/28/24 06:15 Total Bilirubin 0.4 mg/dL (0.15-1.2) 08/28/24 06:15 AST 18 U/L (0-40) 08/28/24 06:15 ALT 22 U/L (0-41) 08/28/24 06:15 Alkaline Phosphatase 139 U/L (40-130) H 08/28/24 06:15 Total Protein 7.5 g/dL (6.6-8.7) 08/28/24 06:15 Albumin 4.6 g/dL (3.5-5.2) 08/28/24 06:15 Globulin 2.9 g/dL (1.3-4.6) 08/28/24 06:15 Triglycerides 80 mg/dL (0-150) 08/28/24 12:28 Cholesterol 145 mg/dL (0-200) 08/28/24 12:28 LDL Cholesterol, Calc 74 mg/dL (50-129) 08/28/24 12: HDL Cholesterol 55 mg/dL (60-100) L 08/28/24 12:28 LDL/HDL Ratio 1.35 RATIO (0.00-3.22) 08/28/24 12:28 Cholesterol/HDL Ratio 2.64 mg/dL (1.0-5.00) 08/28/24 12:28 Urine Color Yellow (Yellow) 08/28/24 07:06 Urine Appearance Clear (CLEAR) 08/28/24 07:06 Urine pH 7.5 (5-7) 08/28/24 07:06 Ur Specific [place] 1.026 (1.005-1.030) 08/28/24 07:06 Urine Protein Trace (Negative) A 08/28/24 07:06 Urine Glucose (UA) Negative (Normal) 08/28/24 07:06 Urine Ketones Negative (Negative) 08/28/24 07:06 Urine Blood Negative (Negative) 08/28/24 07:06 Urine Nitrate Negative (Negative) 08/28/24 07:06 Urine Bilirubin Negative (Negative) 08/28/24 07:06 Urine Urobilinogen 1.0 mg/dL (Negative) 08/28/24 07:06 Ur Leukocyte Esterase Negative (Negative) 08/28/24 07:06 Urine RBC 3-5 /hpf (0-2) 08/28/24 07:06 Urine WBC 0-5 /hpf (0-5) 08/28/24 07:06 Ur Squamous Epith Cells 0-5 /hpf (0-5) 08/28/24 07:06 Amorphous Sediment Not Reportable 08/28/24 07:06 Urine Bacteria None seen /hpf (NONE) 08/28/24 07:06 Hyaline Casts 0.81 /lpf 08/28/24 07:06 Urine Opiates Screen Negative ng/mL (Negative) 08/28/24 07:06 Ur Barbiturates Screen Negative ng/mL (Negative) 08/28/24 07:06 Ur Phencyclidine Scrn Negative ng/mL (Negative) 08/28/24 07:06 Ur Amphetamines Screen Negative ng/mL (Negative) 08/28/24 07:06 U Benzodiazepines Scrn Negative ng/mL (Negative) 08/28/24 07:06 Urine Cocaine Screen Negative ng/mL (Negative) 08/28/24 07:06 U Marijuana (THC) Screen Negative ng/mL (Negative) 08/28/24 07:06 A&P Assessment and plan (1) CVA (cerebral vascular accident): Admit the patient to [facility] for close neuro monitoring he is not a TNK candidate due to being out of window for treatment Continue telemetry monitoring on the unit to evaluate for underlying arrhythmias. CT head unremarkable CTA head and neck without any major vessel occlusion. Echocardiogram ordered and pending Start aspirin 81 mg daily, plavix 75mg po daily Atorvastatin 40 mg daily Holding home dose of antihypertensives to allow for permissive hypertension for the first 24 hrs PT OT speech therapy assessment Plan DVT ppx: SCDs Full code Attestations 2 Medical Necessity Statement*: less than 2 midnight stay anticipated Coding Level of Care Code Acute Code for [facility] Diagnoses CVA (cerebral vascular accident) I63.9
[2024-08-28 12:51] LABS: Estmated Average Glucose 111; Hemoglobin A1C 5.5 % (4.0-6.0)
[2024-08-28 12:56] LABS: Chol HDL Ratio 2.64 mg/dL (1.0-5.00); Cholesterol 145 mg/dL (0-200); HDL Cholesterol 55 mg/dL (60-100); LDL Cholesterol Calculated 74 mg/dL (50-129); LDL HDL Ratio 1.35 RATIO (0.00-3.22); Triglycerides 80 mg/dL (0-150)
--- NOTE | 2024-08-28 14:56 | PC.NURSE ---
education and training coordinator rounds @ 0910: patient given stroke education book.
[2024-08-28] MEDS: atorvastatin 40 mg Tablet PO (20:24)
[2024-08-29 04:37] VITALS: BP 172/122; PULSE 81; RESP 17; TEMP 36.4; O2SAT 95
[2024-08-29 08:07] VITALS: BP 165/133; PULSE 94; RESP 15; TEMP 36.8; O2SAT 96
[2024-08-29] MEDS: aspirin 81 mg EC Tablet PO (09:00)
[2024-08-29] MEDS: clopidogrel 75 mg Tablet PO (09:00)
[2024-08-29 12:04] VITALS: BP 183/113; PULSE 87; RESP 16; TEMP 36.8; O2SAT 97
[2024-08-29] MEDS: amlodipine 10 mg Tablet PO (12:18)
[2024-08-29] MEDS: hyDRALAzine 20 mg/mL INJ 1 mL 5 MG IVP (15:32)
[2024-08-29 15:45] VITALS: BP 150/91
--- NOTE | 2024-08-29 15:58 | PC.OT ---
Pt declines OT treatment session and states I don't think I need it. Will attempt again at later time.
--- NOTE | 2024-08-29 17:49 | PM.DCS ---
Discharge Providers Date of Admission: 08/28/24 10:12 Date of Discharge: August 29, 2024 Attending Provider at Admission: Malou Rooney MD Attending Provider at Discharge: Malou Rooney MD Primary Care Provider: JENNI Chinchilla Diagnoses at Discharge Discharge Diagnosis (1) CVA (cerebral vascular accident): Status: Acute Reason for Visit Reason for Visit: left side weakness and numbess Hospital Course Hospital Course patient is a 54 year old male with h/o uncontrolled HTN, only recently started amlodipine 2.5 mg po daily , presented to the ER after waking up with right sided weakness of RUE and RLE, clinical picture compatible with acute CVA. CT head and CTA head/neck without major vessel occlusion. He presnted out of TNK window to the ER. He was admitted for stroke neuro monitoring, received ASA, Plavix and atorvastatin. Negative DM screen. After allowing for permissive HTN over the first 24 hrs, anti hypertensives were resumed today. Amlodipine dose was increased to 10mg daily at discharge. Patient has been instrcuted to maintain BP log over the next week and take it to his PCP for review to allow for titration of medications as needed. Echo was negative for any cardiac abnormalities. No arrhythmias noted on telemtery during hospital stay. f/up arranged with neurology as outpatient He recieved PT/OT and speech therapy assessments - referred for outpatient PT at discharge Physical Exam Narrative: General: No acute distress, AO x3 HEENT: PERRLA, pupils bilaterally equal and reactive, pallors not present Chest: Normal vesicular breath sounds, no added sounds, equal good air entry bilaterally CVS: S1-S2 regular, no murmurs, no tachycardia, no gallops, no rubs Abdomen: Soft, nontender, no organomegaly, bowel sounds present Neuro: RUE and RLE weaker compared to left, 4/5 , LUE and LLL 5/5 ; no facial deformity, AO x3 Discharge Data Studies Completed and Pending Completed Studies During Hospitalization Category Date Time Status CT head thrombolytic 32071 Stat Cat Scan 08/28/24 06:12 Completed CTA head neck [CT angio headneck* [id number]] Stat Cat Scan 08/28/24 06:42 Completed CV. echo complete* [id number] Routine Ultrasound 08/28/24 12:13 Completed Radiology Impressions Head CT 08/28/24 06:12 IMPRESSION: No acute intracranial abnormality. Please note that MRI is more sensitive for early changes of acute ischemia. ASSESSMENT: ASPECTS ([place] Stroke Program Early CT Score) is 10. ADDENDUM: 08/28/24 0705 Confirmed receipt of report by Dr. Andino, who has no further questions. ADDENDUM: 08/28/24 9200 The scalp lesions are likely to reflect sebaceous cyst. Head/Neck CTA 08/28/24 06:42 IMPRESSION: 1. No acute vascular abnormality. 2. Additional findings, as above. IMPRESSION: 1. No acute vascular abnormality. 2. Additional findings, as above. REFERENCES: NASCET CRITERIA. The degree of stenosis in the cervical segment of the internal carotid artery is based on NASCET criteria. Normal is no stenosis. Mild is less than 50% stenosis. Moderate is 50-69% stenosis. Severe is 70% to 99% stenosis. Total occlusion is no detectable patent lumen. Laboratory Results WBC 8.22 10^3/uL (3.29-11.43) 08/28/24 06:15 RBC 5.37 10^6/uL (3.85-5.65) 08/28/24 06:15 Hgb 16.90 g/dL (11.27-16.99) 08/28/24 06:15 Hct 48.5 % (37-53) 08/28/24 06:15 MCV 90.3 fl (82-101) 08/28/24 06:15 MCH 31.5 pg (27-33) 08/28/24 06:15 MCHC 34.8 g/dL (30-55) 08/28/24 06:15 RDW 12.4 % (12.1-15.1) 08/28/24 06:15 Plt Count 255 10^3/cmm (157-399) 08/28/24 06:15 MPV 9.6 fL (7.4-10.4) 08/28/24 06:15 Neut % (Auto) 59.8 % 08/28/24 06:15 Lymph % (Auto) 29.4 % 08/28/24 06:15 [place] % (Auto) 7.9 % 08/28/24 06:15 Eos % (Auto) 1.6 % 08/28/24 06:15 Baso % (Auto) 1.1 % 08/28/24 06:15 Neut # (Auto) 4.91 10^3/uL (1.8-7.7) 08/28/24 06:15 Lymph # (Auto) 2.4 10^3/uL (0.8-4.8) 08/28/24 06:15 [place] # (Auto) 0.7 10^3/uL (0.2-0.9) 08/28/24 06:15 Eos # (Auto) 0.1 10^3/uL (0.0-0.8) 08/28/24 06:15 Baso # (Auto) 0.1 10^3/uL (0.0-0.1) 08/28/24 06:15 Nucleated RBC % (auto) 0 % 08/28/24 06:15 Nucleated RBCs # 0.0 /100WBC 08/28/24 06:15 PT 11.40 SECONDS (12.1-14.9) L 08/28/24 06:15 INR 0.78 (0.8-1.2) L 08/28/24 06:15 APTT 28.0 SECONDS (23.9-36.7) 08/28/24 06:15 Sodium 140 mmol/L (136-145) 08/28/24 06:15 Potassium 4.5 mmol/L (3.5-5.1) 08/28/24 06:15 Chloride 102 mmol/L (98-107) 08/28/24 06:15 Carbon Dioxide 27 mmol/L (22-29) 08/28/24 06:15 Anion Gap 15.5 (5-19) 08/28/24 06:15 BUN 13 mg/dL (6-20) 08/28/24 06:15 Creatinine 0.9 mg/dL (0.7-1.2) 08/28/24 06:15 GFR Calculation 88.6 mL/min (90-130) L 08/28/24 06:15 Glucose 114 mg/dL (65-115) 08/28/24 06:15 POC Glucose 107 mg/dL (70-110) 08/28/24 06:06 Estimat Average Glucose 111 08/28/24 12:28 Hemoglobin A1c 5.5 % (4.0-6.0) 08/28/24 12:28 Calculated Osmolality 291 mOsm/kg (285-295) 08/28/24 06:15 Calcium 10.1 mg/dL (8.5-10.5) 08/28/24 06:15 Total Bilirubin 0.4 mg/dL (0.15-1.2) 08/28/24 06:15 AST 18 U/L (0-40) 08/28/24 06:15 ALT 22 U/L (0-41) 08/28/24 06:15 Alkaline Phosphatase 139 U/L (40-130) H 08/28/24 06:15 Total Protein 7.5 g/dL (6.6-8.7) 08/28/24 06:15 Albumin 4.6 g/dL (3.5-5.2) 08/28/24 06:15 Globulin 2.9 g/dL (1.3-4.6) 08/28/24 06:15 Triglycerides 80 mg/dL (0-150) 08/28/24 12:28 Cholesterol 145 mg/dL (0-200) 08/28/24 12:28 LDL Cholesterol, Calc 74 mg/dL (50-129) 08/28/24 12:28 HDL Cholesterol 55 mg/dL (60-100) L 08/28/24 12:28 LDL/HDL Ratio 1.35 RATIO (0.00-3.22) 08/28/24 12:28 Cholesterol/HDL Ratio 2.64 mg/dL (1.0-5.00) 08/28/24 12:28 Urine Color Yellow (Yellow) 08/28/24 07:06 Urine Appearance Clear (CLEAR) 08/28/24 07:06 Urine pH 7.5 (5-7) 08/28/24 07:06 Ur Specific [place] 1.026 (1.005-1.030) 08/28/24 07:06 Urine Protein Trace (Negative) A 08/28/24 07:06 Urine Glucose (UA) Negative (Normal) 08/28/24 07:06 Urine Ketones Negative (Negative) 08/28/24 07:06 Urine Blood Negative (Negative) 08/28/24 07:06 Urine Nitrate Negative (Negative) 08/28/24 07:06 Urine Bilirubin Negative (Negative) 08/28/24 07:06 Urine Urobilinogen 1.0 mg/dL (Negative) 08/28/24 07:06 Ur Leukocyte Esterase Negative (Negative) 08/28/24 07:06 Urine RBC 3-5 /hpf (0-2) 08/28/24 07:06 Urine WBC 0-5 /hpf (0-5) 08/28/24 07:06 Ur Squamous Epith Cells 0-5 /hpf (0-5) 08/28/24 07:06 Amorphous Sediment Not Reportable 08/28/24 07:06 Urine Bacteria None seen /hpf (NONE) 08/28/24 07:06 Hyaline Casts 0.81 /lpf 08/28/24 07:06 Urine Opiates Screen Negative ng/mL (Negative) 08/28/24 07:06 Ur Barbiturates Screen Negative ng/mL (Negative) 08/28/24 07:06 Ur Phencyclidine Scrn Negative ng/mL (Negative) 08/28/24 07:06 Ur Amphetamines Screen Negative ng/mL (Negative) 08/28/24 07:06 U Benzodiazepines Scrn Negative ng/mL (Negative) 08/28/24 07:06 Urine Cocaine Screen Negative ng/mL (Negative) 08/28/24 07:06 U Marijuana (THC) Screen Negative ng/mL (Negative) 08/28/24 07:06 Vitals Last Vital Signs Temp 98.2 F 08/29/24 12:04 Pulse 87 08/29/24 12:04 Resp 16 08/29/24 12:04 BP 150/91 08/29/24 15:45 Pulse Ox 97 08/29/24 12:04 O2 Del Method Room Air 08/29/24 12:04 Discharge Plan Discharge Patient Disposition: Home Condition: Stable Prescriptions: New atorvastatin 40 mg Tablet 40 mg PO BEDTIME 30 Days Qty: 30 0RF clopidogrel 75 mg Tablet 75 mg PO DAILY 21 Days Qty: 21 0RF aspirin 81 mg Tablet,Delayed Release (Dr/Ec) 81 mg PO DAILY 30 Days Qty: 30 0RF Changed amlodipine 5 mg tablet 10 mg PO DAILY 30 Days Qty: 30 0RF Discharge Orders: Discharge Order (Routine); Ordered 08/29/24 Ordered By: Malou Rooney Other Ambulatory Orders: Physical Therapy Eval and Treat Outpatient (Order) Timeframe: 3 Days Facility: [facility] - Location: Physical Therapy Ordered By: Malou Rooney Referrals: Althea Berry NP [Other] - 7-10 days (You have an appointment to establish care with Althea Berry NP at the [facility] clinic. Dr. Vázquez is not accepting new patients. ) Rico Barrow MD [Physician] - 2 weeks (stroke follow up We have notified your physician's clinic of the need for a follow-up appointment to be scheduled. If you have not heard from them within the next 2 business days, please call them directly. ) Discharge Diet: Cardiac Discharge Activity: As per PT/OT instructions Patient Instructions: Aspirin (By mouth) ([place] Extra Strength, [place] Aspirin Children[facility],..., Atorvastatin (By mouth) (Lipitor, Atorvaliq), Clopidogrel (By mouth) (Plavix), Self Care Measures After a Stroke (DC), Stroke (DC), Opioid Safety, Stroke Stoplight Stand Alone Forms: Work/School Release Discharge Attestations Time Spent in Discharge Care*: greater than 30 min Quality Metrics Clinical Quality Measures [ Cerebrovascular Accident { Contraindication to Antithrombotic: None; antithrombotic prescribed; Contraindication to Anticoagulation: Overlap treatment not indicated; Contraindication to Statin: None; Statin prescribed;}] Coding Level of Care Code Acute Code for [facility] Diagnoses CVA (cerebral vascular accident) I63.9
[2024-08-29 18:22] VITALS: BP 150/91; PULSE 87; RESP 16; TEMP 36.8; O2SAT 97
== END 2024-08-29 18:00 | disposition home or self-care (01) ==
LOC: ER 06:41 → ER IP 10:13 → MEDSURG 11:10
PROVIDERS: Admitting Provider Student in an Organized Health Care Education/Training Program; Emergency Provider Emergency Medicine; PCP Registered Nurse; Visit Provider Student in an Organized Health Care Education/Training Program
DX: I63.9 Cerebral infarction, unspecified (principal); I10 Essential (primary) hypertension; E66.01 Morbid (severe) obesity due to excess calories; Z68.41 Body mass index [BMI] 40.0-44.9, adult; R53.1 Weakness; Z79.899 Other long term (current) drug therapy; Z87.891 Personal history of nicotine dependence
CPT/HCPCS: 36415; 36416; 70450; 70496; 70498; 80053; 80061; 80306; 81001; 82962; 83036; 85025; 85610; 85730; 92507; 92523; 92526; 92610; 93005; 93306; 96374; 97110; 97116; 97161; 97166; 99285; G0378; J0360

== ENCOUNTER 2024-09-05 07:22 | Outpatient (RCR) | payer OTHER, SELFPAY | END 2024-09-05 23:59 | disposition home or self-care (01) | LOC: SPT 07:22 | DX: I63.9 Cerebral infarction, unspecified (principal); R53.1 Weakness | CPT/HCPCS: 97161 ==

== ENCOUNTER 2024-09-06 06:00 | Outpatient (RCR) | payer OTHER, SELFPAY | END 2024-10-03 23:59 | disposition home or self-care (01) | LOC: SPT 06:00 | DX: I63.9 Cerebral infarction, unspecified (principal); R53.1 Weakness | CPT/HCPCS: 97110; 97112 ==

== ENCOUNTER 2024-10-04 06:30 | Outpatient (RCR) | payer OTHER, SELFPAY | END 2024-11-03 12:10 | disposition home or self-care (01) | LOC: SPT 06:30 | DX: I63.9 Cerebral infarction, unspecified (principal); R53.1 Weakness | CPT/HCPCS: 97110 ==

== ENCOUNTER 2024-11-10 08:26 | Observation (INO) | payer OTHER, SELFPAY ==
[2024-11-10] VITALS (10 sets, daily range): BP systolic 132–179; BP diastolic 52–121; PULSE 62–81; RESP 15–20; TEMP 36.2–36.8; O2SAT 93–99; BMI 42.2
--- NOTE | 2024-11-10 08:40 | CT_ITS ---
WS: [id number] CT HEAD TECHNIQUE: Noncontrast CT of the head obtained from the skullbase to the vertex. CLINICAL INFORMATION: Symptoms of acute stroke COMPARISON: None. DLP: All CT scans at [facility] use at least one of these dose optimization techniques: automated exposure control; mA and/or kV adjustment per patient size (includes targeted exams where dose is matched to clinical indication); or iterative reconstruction. FINDINGS: No evidence of intracranial hemorrhage or mass effect. Ventricular system and basal cisterns are patent. Previously described infarcts in the LEFT marquez radiata are similar in appearance to 08/28/2024. No extra-axial fluid collections. No evidence of mass or mass effect. Normal jo-white differentiati on. Paranasal sinuses and mastoid air cells are well aerated. .Normal visualized soft tissues. CT/CT head thrombolytic [id number] IMPRESSION: 1. No evidence of intracranial hemorrhage or mass effect. 2. Previously described infarcts in the LEFT marquez radiata are similar in destiney earance compared to 08/28/2024. 3. No new intracranial findings. Notified Ned Velazquez DO at 11/10/2024 9:09 AM.
--- NOTE | 2024-11-10 08:40 | ECG_ITS ---
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 Measurements Intervals [place]raw Rate: 72 P: 9 CT: 137 QRS: 0 QRSD: 97 T: -3 QT: 351 QTc: 385 Interpretive Statements SINUS RHYTHM VOLTAGE CRITERIA FOR LVH [MEETS CRITERIA IN ONE OF: R(aVL), S(V1), R(V5), R(V5/V6)+S(V1)] Compared to ECG 08/28/2024 06:09:44 No significant changes Electronically Signed On 11-10-2024 22:25:09 CDT by Dieter Llanes M.D. [email or web address]
--- NOTE | 2024-11-10 08:53 | W.ED.NEUROSD ---
HPI - Neuro Symptoms/Deficit General: Chief Complaint: Neuro Symptoms/Deficit Stated Complaint: R side numbness, difficulty walking,blurred vision Time Seen by Provider: 11/10/24 08:37 History of Present Illness: 54-year-old male with a history of previous stroke with right-sided residual deficits states this morning he is worse. He went to bed last night around 9:00 he still has some residual right-sided deficits but particularly his leg this morning seems weaker than he has been in the past he has right-sided numbness which was also new. He presented with a late presentation for an acute CVA a month ago he did not receive any thrombolytics he has been started on aspirin and Plavix. States he feels like his right leg is heavy and weak. Presented at 8 3011-1/2 hours after his last known well with a wake-up stroke. Associated symptoms: Deny chest pain Related Data Home Medications ?Medication ?Instructions ?Recorded ?Confirmed losartan 50 mg tablet 50 mg PO BID 09/03/24 11/10/24 amlodipine 10 mg tablet 10 mg PO DAILY 11/10/24 11/10/24 aspirin 81 mg tablet,delayed 81 mg PO DAILY 11/10/24 11/10/24 release atorvastatin 40 mg tablet 40 mg PO BEDTIME 11/10/24 11/10/24 metoprolol succinate 25 mg 25 mg PO DAILY 11/10/24 11/10/24 tablet,extended release 24 hr Previous Rx's ?Medication ?Instructions ?Recorded ticagrelor 90 mg tablet (Brilinta) 90 mg PO BID 30 days #60 tabs 11/11/24 Allergies Allergy/AdvReac Type Severity Reaction Status Date / Time No Known Allergies Allergy Verified 09/03/24 07:49 Review of Systems Const: Denies: fever(s) or chills Card: Denies: chest pain Resp: Denies: dyspnea GI: Denies: abdominal pain : Denies: dysuria, urinary frequency or urinary urgency Musc: Denies: neck pain or back pain Skin/Breast: Denies: rash PFSH ED PFSH: Medical History Morbid obesity Surgical History No pertinent past surgical history Social History Smoking and tobacco/nicotine status: former use of tobacco/nicotine NIH stroke score NIHSS: Level Of Consciousness - 1a: 0 Level Of Consciousness Questions - 1b: Both Correct Level Of Consciousness Commands - 1c: Both Correct Best Gaze - 2: Normal Visual Brannon - 3: No Visual Loss Facial Palsy - 4: Normal Motor Arm Right - 5: Drift Motor Arm Left - 5: No Drift Motor Leg Right - 6: Drift Motor Leg Left - 6: No Drift Limb Ataxia - 7: Present In One Limb Sensory - 8: Mild To Moderate Loss Best Language - 9: No Aphasia Dysarthia - 10: Normal Extinction And Inattention - 11: 0 Score: Total Score: 4 Physical Exam Const: GENERAL APPEARANCE: cooperative ORIENTATION/CONSCIOUSNESS: Yes awake, Yes oriented to person, Yes oriented to place and Yes oriented to time HENMT: COMMON NORMALS: normocephalic, atraumatic and hearing grossly normal bilaterally HEAD & SCALP: normocephalic and atraumatic Resp: COMMON NORMALS: normal respiratory effort, No retractions, No use of accessory muscles and clear to auscultation bilaterally AUSCULTATION: clear to auscultation bilaterally Cardio: COMMON NORMALS: regular rate, regular rhythm and No murmurs present (Cardio) RATE: regular rate RHYTHM: regular rhythm GI: COMMON NORMALS: Soft to palpation and No hepatosplenomegaly present AUSCULTATION: Yes normoactive bowel sounds PALPATION: Yes Soft to palpation, No Tenderness to palpation present (GI), No Guarding due to palpation present (GI) and Yes No hepatosplenomegaly present Extremity: COMMON NORMALS: normal to inspection, capillary refill normal, no clubbing, cyanosis or edema, no calf tenderness and no pedal edema Neuro: SENSORIUM/ORIENTATION: Yes oriented to person, Yes oriented to place and Yes oriented to time OTHER: Stroke score of 4 on initial evaluation however all of the points are in areas affected by his previous stroke Skin: COMMON NORMALS: no rashes or lesions noted GENERAL SKIN EXAM: no rashes or lesions noted Course Vital Signs: Vital signs: Vital Signs Temperature 97.7 F 11/11/24 13:21 Pulse Rate 76 11/11/24 13:21 Respiratory Rate 18 11/11/24 13:21 Blood Pressure 151/98 11/11/24 13:21 Pulse Oximetry 98 11/11/24 13:21 Oxygen Delivery Me thod Room Air 11/11/24 11:28 MDM - Neuro Symptoms/Deficit Medical Decision Making Patient does have worsening of right sided numbness in the same distribution as he had for his previous stroke. He was called as a stroke alert Dr. Barrow seen the patient he recommends observation in the hospital. See his consultation note. Patient has persistent weakness. He is outside of any treatment window for thrombolytics. He does not have a high enough score to warrant CTA to evaluate for large vessel occlusion, he would not be a candidate for embolectomy Dr. Barrow agrees. Discussed with hospitalist admission orders written Medical Records I reviewed the patient's medical records. Lab Data I reviewed the patient's lab results. 11/11/24 04:19 11/11/24 04:[address] 11/10/24 08:40 IMPRESSION: 1. No evidence of intracranial hemorrhage or mass effect. 2. Previously described infarcts in the LEFT marquez radiata are similar in appearance compared to 08/28/2024. 3. No new intracranial findings. Notified Ned Velazquez DO at 11/10/2024 9:09 AM. Head MRI 11/10/24 13:48 IMPRESSION: 1. Small LEFT marquez radiata acute infarcts. There are two acute small infarcts adjacent to each other. 2. Additional chronic small vessel disease and LEFT marquez radiata infarcts. 3. No hemorrhage. Head/Neck CTA 11/10/24 13:48 IMPRESSION: 1. No significant cervical ICA stenosis. Both ICAs are patent to the skull base. 2. Codominant and patent vertebral arteries bilaterally. 3. No flow-limiting intracranial stenosis. 4. Chronic infarcts in the LEFT marquez radiata extending into the internal capsule and LEFT thalamus previously described. Chronic lacunar infarct along the RIGHT posterior limb internal capsule. Laboratory Results WBC 6.51 10^3/uL (3.29-11.43) 11/10/24 09:09 RBC 4.71 10^6/uL (3.85-5.65) 11/10/24 09:09 Hgb 14.70 g/dL (11.27-16.99) 11/10/24 09:09 Hct 43.4 % (37-53) 11/10/24 09:09 MCV 92.1 fl (82-101) 11/10/24 09:09 MCH 31.2 pg (27-33) 11/10/24 09:09 MCHC 33.9 g/dL (30-55) 11/10/24 09:09 RDW 12.3 % (12.1-15.1) 11/10/24 09:09 Plt Count 204 10^3/cmm (157-399) 11/10/24 09:09 MPV 9.6 fL (7.4-10.4) 11/10/24 09:09 Neut % (Auto) 59.1 % 11/10/24 09:09 Lymph % (Auto) 28.9 % 11/10/24 09:09 Titus % (Auto) 8.4 % 11/10/24 09:09 Eos % (Auto) 2.2 % 11/10/24 09:09 Baso % (Auto) 1.1 % 11/10/24 09:09 Neut # (Auto) 3.85 10^3/uL (1.8-7.7) 11/10/24 09:09 Lymph # (Auto) 1.9 10^3/uL (0.8-4.8) 11/10/24 09:09 Titus # (Auto) 0.6 10^3/uL (0.2-0.9) 11/10/24 09:09 Eos # (Auto) 0.1 10^3/uL (0.0-0.8) 11/10/24 09:09 Baso # (Auto) 0.1 10^3/uL (0.0-0.1) 11/10/24 09:09 Nucleated RBC % (auto) 0 % 11/10/24 09:09 Nucleated RBCs # 0.0 /100WBC 11/10/24 09:09 PT 12.80 SECONDS (12.1-14.9) 11/10/24 09:09 INR 0.90 (0.8-1.2) 11/10/24 09:09 APTT 29.1 SECONDS (23.9-36.7) 11/10/24 09:09 Sodium 142 mmol/L (136-145) 11/10/24 09:09 Potassium 4.1 mmol/L (3.5-5.1) 11/10/24 09:09 Chloride 106 mmol/L (98-107) 11/10/24 09:09 Carbon Dioxide 25 mmol/L (22-29) 11/10/24 09:09 Anion Gap 15.1 (5-19) 11/10/24 09:09 BUN 14 mg/dL (6-20) 11/10/24 09:09 Creatinine 0.8 mg/dL (0.7-1.2) 11/10/24 09:09 GFR Calculation 101.5 mL/min (90-130) 11/10/24 09:09 Glucose 93 mg/dL (65-115) 11/10/24 09:09 POC Glucose 99 mg/dL (70-110) 11/10/24 08:33 Estimat Average Glucose 108 11/10/24 09:09 Hemoglobin A1c 5.4 % (4.0-6.0) 11/10/24 09:09 Calculated Osmolality 294 mOsm/kg (285-295) 11/10/24 09:09 Calcium 10.4 mg/dL (8.5-10.5) 11/10/24 09:09 Total Bilirubin 0.6 mg/dL (0.15-1.2) 11/10/24 09:09 AST 23 U/L (0-40) 11/10/24 09:09 ALT 37 U/L (0-41) 11/10/24 09:09 Alkaline Phosphatase 114 U/L (40-130) 11/10/24 09:09 Total Protein 7.0 g/dL (6.6-8.7) 11/10/24 09:09 Albumin 4.4 g/dL (3.5-5.2) 11/10/24 09:09 Globulin 2.6 g/dL (1.3-4.6) 11/10/24 09:09 Triglycerides 89 mg/dL (0-150) 11/10/24 09:09 Cholesterol 112 mg/dL (0-200) 11/10/24 09:09 LDL Cholesterol, Calc 40 mg/dL (50-129) L 11/10/24 09:09 HDL Cholesterol 54 mg/dL (60-100) L 11/10/24 09:09 LDL/HDL Ratio 0.74 RATIO (0.00-3.22) 11/10/24 09:09 Cholesterol/HDL Ratio 2.07 mg/dL (1.0-5.00) 11/10/24 09:09 TSH 1.80 uIU/mL (0.27-4.20) 11/10/24 09:09 Urine Color Yellow (Yellow) 11/10/24 10:03 Urine Appearance Clear (CLEAR) 11/10/24 10:03 Urine pH 5 (5-7) 11/10/24 10:03 Ur Specific [place] 1.015 (1.005-1.030) 11/10/24 10:03 Urine Protein Trace (Negative) 11/10/24 10:03 Urine Glucose (UA) Norm (Normal) 11/10/24 10:03 Urine Ketones Negative (Negative) 11/10/24 10:03 Urine Blood Neg (Negative) 11/10/24 10:03 Urine Nitrate Negative (Negative) 11/10/24 10:03 Urine Bilirubin 1+ (Negative) H 11/10/24 10:03 Urine Urobilinogen 1 mg/dL (Negative) H 11/10/24 10:03 Ur Leukocyte Esterase Negative (Negative) 11/10/24 10:03 Urine RBC 0-2 /hpf (0-2) 11/10/24 10:03 Urine WBC 0-5 /hpf (0-5) 11/10/24 10:03 Ur Squamous Epith Cells 0-5 /hpf (0-5) 11/10/24 10:03 Amorphous Sediment Not Reportable 11/10/24 10:03 Urine Bacteria None seen /hpf (NONE) 11/10/24 10:03 Hyaline Casts 0.81 /lpf 11/10/24 10:03 Urine Opiates Screen Negative ng/mL (Negative) 11/10/24 10:03 Ur Barbiturates Screen Negative ng/mL (Negative) 11/10/24 10:03 Ur Phencyclidine Scrn Negative ng/mL (Negative) 11/10/24 10:03 Ur Amphetamines Screen Negative ng/mL (Negative) 11/10/24 10:03 U Benzodiazepines Scrn Negative ng/mL (Negative) 11/10/24 10:03 Urine Cocaine Screen Negative ng/mL (Negative) 11/10/24 10:03 U Marijuana (THC) Screen Negative ng/mL (Negative) 11/10/24 10:03 All radiology interpretation(s) finalized by discharge Discharge Plan Discharge Patient Disposition: Admitted As Inpatient Admit Provider: Arie Serrano Clinical Impression: CVA (cerebral vascular accident), Morbid obesity, Hypertension Condition: Stable Discharge Diet: Cardiac Discharge Activity: Resume usual activity Coding Level of Care Code ED Program Lead for Jesu Nash
[2024-11-10 09:15] LABS: Basophils # 0.1 10^3/uL (0.0-0.1); Basophils % 1.1 %; Eosinophils # 0.1 10^3/uL (0.0-0.8); Eosinophils % 2.2 %; Hematocrit 43.4 % (37-53); Lymphocytes # 1.9 10^3/uL (0.8-4.8); Lymphocytes % 28.9 %; Mean Corpuscular HGB Conc 33.9 g/dL (30-55); Mean Corpuscular Hemoglobin 31.2 pg (27-33); Mean Corpuscular Volume 92.1 fl (82-101); Mean Platelet Volume 9.6 fL (7.4-10.4); Monocytes # 0.6 10^3/uL (0.2-0.9); Monocytes % 8.4 %; Neutrophils # 3.85 10^3/uL (1.8-7.7); Neutrophils % 59.1 %; Nucleated Red Blood Cells % 0 %; Platelet Count 204 10^3/cmm (157-399); Red Blood Count 4.71 10^6/uL (3.85-5.65); Red Cell Distribution Width 12.3 % (12.1-15.1); White Blood Count 6.51 10^3/uL (3.29-11.43)
[2024-11-10 09:36] LABS: Alanine Aminotransferase 37 U/L (0-41); Albumin Level 4.4 g/dL (3.5-5.2); Alkaline Phosphatase 114 U/L (40-130); Anion Gap 15.1 (5-19); Aspartate Amino Transferase 23 U/L (0-40); Blood Urea Nitrogen 14 mg/dL (6-20); Calcium 10.4 mg/dL (8.5-10.5); Carbon Dioxide 25 mmol/L (22-29); Chloride 106 mmol/L (98-107); Creatinine Clr Calc Pharmacy 161.9444; Globulin 2.6 g/dL (1.3-4.6); Glomerular Filtration Rate 101.5 mL/min (90-130); Glucose 93 mg/dL (65-115); Osmolality Calculated 294 mOsm/kg (285-295); Potassium 4.1 mmol/L (3.5-5.1); Sodium 142 mmol/L (136-145); Total Bilirubin 0.6 mg/dL (0.15-1.2)
--- NOTE | 2024-11-10 09:45 | PM.CONSULT ---
Providers/Reason For Consult Consulting Physician/Specialty*: Rico Barrow MD neurology and epilepsy Reason for Consult*: Acute care/stroke alert emergency department room #5 History of Present Illness History of Present Illness Jose Ramon Sebastian is a 54 year old male with a history of hypertension and left cerebral infarction with right sided weakness August 2024. CT angiogram August 2024 negative for large vessel occlusion. On 11/09/2024 the patient reported he went to bed around 9 PM. Prior to going to bed he stated he checked his blood pressure and it was 174/102. Patient reports that he checks his blood pressure twice a day routinely. The patient stated that this elevated blood pressure was following his nightly dose of medications. The patient stated that on 11/10/2024 he woke up around 3:50 AM and noticed more right sided weakness involving his right arm and right leg. 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 The patient stated that around 7:30 AM his symptoms did not improve and therefore he presented to the [facility] emergency department. Stroke alert was initiated at 8:41 AM on 11/10/2024. Patient reported that his first stroke that occurred in August 2024 with similar and that he awakened from sleep with a right sided weakness. The patient reported that his right sided weakness following a stroke on August 2024 had improved and he was discharged from outpatient physical therapy approximately 1 week prior to presenting to the [facility] emergency department on 11/10/2024. The patient denied chest pain, headaches, visual difficulty, or swallowing difficulty. NIH stroke score = 5 (mild right lower facial weakness =1, right upper extremity weakness =2, right lower extremity weakness =2) Glucose 93 Since the patient's last known well was 9 PM on 11/09/2024 and the patient awakened at 3:50 AM on 11/10/2024 with right upper and right lower extremity weakness, the patient was not a candidate for intravenous thrombolytics and no intravenous thrombolytics were administered. 2D echocardiogram August 2024 was unrevealing and negative for obvious atrial or ventricular thrombus Stat noncontrast head CT 11/10/2024 IMPRESSION: 1. No evidence of intracranial hemorrhage or mass effect. 2. Previously described infarcts in the LEFT amrquez radiata are similar in appearance compared to 08/28/2024. 3. No new intracranial findings. Drug allergies: None Current medications: Norvasc 10 mg p.o. daily Aspirin 81 mg p.o. daily Plavix 75 mg p.o. daily Losartan 50 mg p.o. daily Metoprolol 25 mg p.o. daily Lipitor 40 mg p.o. nightly Past medical history: Left cerebral infarction August 2024 Hypertension Obesity Habits: None Family history: Remarkable for a paternal grandmother who experienced a stroke. 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 Review of Systems General: Reports: 10 or more systems reviewed and unremarkable except in HPI and below Medications/Allergies Home Medications ?Medication ?Instructions ?Recorded ?Confirmed ?Last Taken ?Type losartan 50 mg tablet 50 mg PO BID 09/03/24 11/10/24 11/10/24 History amlodipine 10 mg tablet 10 mg PO DAILY 11/10/24 11/10/24 11/10/24 History aspirin 81 mg tablet,delayed 81 mg PO DAILY 11/10/24 11/10/24 11/10/24 History release atorvastatin 40 mg tablet 40 mg PO BEDTIME 11/10/24 11/10/24 11/09/24 History clopidogrel 75 mg tablet 75 mg PO DAILY 11/10/24 11/10/24 11/10/24 History metoprolol succinate 25 mg 25 mg PO DAILY 11/10/24 11/10/24 11/10/24 History tablet,extended release 24 hr Allergies Allergy/AdvReac Type Severity Reaction Status Date / Time No Known Allergies Allergy Verified 09/03/24 07:49 PFSH Acute PFSH: Medical History Morbid obesity Surgical History No pertinent past surgical history Social History Smoking and tobacco/nicotine status: former use of tobacco/nicotine Vitals/I&O/Wt Last Vital Signs Temp 97.1 F L 11/10/24 08:34 Pulse 81 11/10/24 08:34 Resp 17 11/10/24 08:34 BP 147/87 11/10/24 09:03 Pulse Ox 98 11/10/24 08:34 O2 Del Method Room Air 11/10/24 08:34 Weight last 48 hrs Weight 320 lb Physical Exam Narrative: Blood pressure 147/87 heart rate 81 respirations 18 temperature 97.1 ?F O2 saturation 98% on room air NIH stroke score = 5 (mild right lower facial weakness =1, right upper extremity weakness =2, right lower extremity weakness =2) Glucose 93 Since the patient's last known well was 9 PM on 11/09/2024 and the patient awakened at 3:50 AM on 11/10/2024 with right upper and right lower extremity weakness, the patient was not a candidate for intravenous thrombolytics and no intravenous thrombolytics were administered. Stat noncontrast head CT 11/10/2024 IMPRESSION: 1. No evidence of intracranial hemorrhage or mass effect. 2. Previously described infarcts in the LEFT marquez radiata are similar in appearance compared to 08/28/2024. 3. No new intracranial findings. The patient is alert and oriented x 3. Speech fluent. Head normocephalic. Neck supple. Cranial nerves II through XII revealed mild flattening of the right nasolabial fold. Other cranial nerves were intact. Pupils 3 to 4 mm round reactive to light and accommodation. Extraocular movements intact. Visual hopkins appear to be full via confrontation. Motor testing 4/5 right arm and 3/5 right leg. Sensory examination intact to touch. There was no extinction on double sensory stimulation. Deep tendon reflex revealed plantar responses bilaterally. Throat clear. Lungs clear. Heart regular rhythm and rate. Extremities were negative for cyanosis. There was some trace edema in his legs bilaterally. Data 11/10/24 09:09 11/10/24 09:09 A&P Assessment and plan (1) Cerebral infarction, left hemisphere: Impression: 1. Acute recurrent left cerebral infarction manifested as right face arm and leg weakness. Since the patient's last known well was 9 PM on 11/09/2024 and the patient awakened at 3:50 AM on 11/10/2024 with right upper and right lower extremity weakness, the patient was not a candidate for intravenous thrombolytics and no intravenous thrombolytics were administered. 2. Hypertension Plan: 1. Recommend obtaining CT angiogram of the head and neck to assess for large vessel occlusion to determine if patient is a candidate for referral for thrombectomy 2. Recommend obtaining noncontrast head MRI to assess for acute stroke in the left hemisphere 3. Recommend continuing Plavix 75 mg p.o. every morning and aspirin 81 mg p.o. every morning with food per NIH stroke protocol 4. Recommend starting Crestor 40 mg p.o. nightly per NIH stroke protocol and discontinue Lipitor 5. Recommend placing patient on cardiac telemetry monitoring to assess for cardiac arrhythmia 6. Stroke education/stroke pamphlet for patient and patient's family 7. Recommend occupational therapy, and physical therapy and speech therapy consult 8. Fall precautions 9. Vital signs and neurochecks per NIH stroke protocol PDMP PDMP Reviewed: Not Reviewed Consult Attestations Medical Necessity Statement: The patient was evaluated by neurology for acute care/stroke alert emergency department room #5 Coding Level of Care Code 38958 Diagnoses Cerebral infarction, left hemisphere I63.9
[2024-11-10 09:52] LABS: Partial Thromboplastin Time 29.1 SECONDS (23.9-36.7)
[2024-11-10 10:16] LABS: Bacteria Urine None Seen /hpf; Hyaline Casts Urine 0.81 /lpf; RBC Urine 0-2 /hpf (0-2); Squamous Epithelial Cell Urine 0-5 /hpf (0-5); WBC Urine 0-5 /hpf (0-5)
[2024-11-10 10:19] LABS: Amphetamines Screen Urine Negative (Negative); Barbiturates Screen Urine Negative (Negative); Benzodiazepines Screen Urine Negative (Negative); Cocaine Screen Urine Negative (Negative); Opiate Screen Urine Negative (Negative); PCP Screen Urine Negative (Negative); THC Screen Urine Negative (Negative)
[2024-11-10 10:20] LABS: Specific Gravity, Urine 1.015 (1.005-1.030); Urine Appearance Clear (CLEAR); Urine Color Yellow (Yellow); pH Urine 5 (5-7)
[2024-11-10 10:21] LABS: Add Urine Culture? No; Add Urine Microscopic? YES; Bilirubin Urine 1+ (Negative); Blood Urine Neg (Negative); Glucose Urine UA Norm (Normal); Ketones Urine Negative (Negative); Leukocyte Esterase Urine Negative (Negative); Nitrate Urine Negative (Negative); Protein Urine Trace (Negative); Urobilinogen Urine 1 mg/dL (Negative)
--- NOTE | 2024-11-10 12:32 | USCV_ITS ---
Jose Ramon Sebastian Age: 54 Gender: M : 1970 Exam Date: 11/10/2024 14:47 Ordering Phys: Arie Serrano MD Technologist: Exam Location: [facility] [place] Indication: tia vs cva BP: / HR: Rhythm: Sinus Technical Quality: MEASUREMENTS (Male / Female) Normal Values FINDINGS Left Ventricle Limited 2D echo was done with a saline contrast. No bubbles were found to be crossing the interatrial or interventricular septum Right Ventricle Right Atrium Left Atrium Mitral Valve Aortic Valve Tricuspid Valve Pulmonic Valve Pericardium Aorta IVC CONCLUSIONS No evidence of [id number] shunt, based on this study The study quality is suboptimal Dr Siria Ledesma MD FACC (Electronically Signed) Final Date: 11 November 2024 19:03 S
--- NOTE | 2024-11-10 13:15 | PM.HP ---
Providers/Chief Complaint Admitting Physician: Arie Serrano MD Chief Complaint: R side numbness, difficulty walking,blurred vision History of Present Illness Jose Ramon Sebastian is a 54 year old male with a past medical history of right sided weakness. This is a 54-year-old male, with a past medical history of hypertension, obesity, who has a history of CVA with right-sided weakness, which has improved, from a CVA back in August 2024, not a TNKase candidate who presents [facility] for right sided weakness. Patient tells me he went to bed last night, nothing out of the ordinary, he woke up at about 350 this morning, noted right-sided weakness involving right arm, right leg, early in the morning he continued to have with right-sided deficits, right-sided weakness. Patient reports, right lower extremity weakness, right upper extremity weakness, no visual deficits, no paresthesias, stroke alert was initiated at 8:41 AM 11/10/2024, NIH stroke scale 5, last known well normal was 9 PM 11/09/2024, not a candidate for tPA, CT head no evidence of intracranial hemorrhage or mass effect. Review of Systems Const: Denies: fever(s) Card: Denies: chest pain Resp: Denies: dyspnea Medications/Allergies Home Medications ?Medication ?Instructions ?Recorded ?Confirmed ?Last Taken ?Type losartan 50 mg tablet 50 mg PO BID 09/03/24 11/10/24 11/10/24 History amlodipine 10 mg tablet 10 mg PO DAILY 11/10/24 11/10/24 11/10/24 History aspirin 81 mg tablet,delayed 81 mg PO DAILY 11/10/24 11/10/24 11/10/24 History release atorvastatin 40 mg tablet 40 mg PO BEDTIME 11/10/24 11/10/24 11/09/24 History clopidogrel 75 mg tablet 75 mg PO DAILY 11/10/24 11/10/24 11/10/24 History metoprolol succinate 25 mg 25 mg PO DAILY 11/10/24 11/10/24 11/10/24 History tablet,extended release 24 hr Allergies Allergy/AdvReac Type Severity Reaction Status Date / Time No Known Allergies Allergy Verified 09/03/24 07:49 PFSH Acute PFSH: Medical History Morbid obesity Surgical History No pertinent past surgical history Social History Smoking and tobacco/nicotine status: former use of tobacco/nicotine Vitals/I&O/Wt Last Vital Signs Temp 97.1 F L 11/10/24 08:34 Pulse 74 11/10/24 13:06 Resp 20 H 11/10/24 11:53 BP 172/88 11/10/24 13:06 Pulse Ox 97 11/10/24 13:06 O2 Del Method Room Air 11/10/24 11:53 Weight last 48 hrs Weight 145.15 kg Physical Exam Const: COMMON NORMALS: no acute distress and patient oriented x3 Eye: COMMON NORMALS: Equal, round and reactive pupils present and EOMs intact bilaterally Neck/C-Spine: COMMON NORMALS: no lymphadenopathy Resp: COMMON NORMALS: normal respiratory effort, No retractions, No use of accessory muscles and clear to auscultation bilaterally AUSCULTATION: clear to auscultation bilaterally Cardio: COMMON NORMALS: regular rate, regular rhythm, S1 normal heart sound present and S2 normal heart sound present RATE: regular rate RHYTHM: regular rhythm HEART SOUNDS: S1 normal heart sound present and S2 normal heart sound present GI: COMMON NORMALS: Normal to inspection, nondistended, normoactive bowel sounds present, Soft to palpation and non-tender Extremity: COMMON NORMALS: no pedal edema Neuro: COMMON NORMALS: patient oriented x3, CN's II-XII intact bilaterally and moves all extremities OTHER: Right upper extremity weakness, strength 4 out of 5 Right lower extremity strength 3 out of 5 Right lower extremity, decreased strength for plantar extension, flexion, inversion, eversion Slight right facial droop No facial paresthesias No slurring of his words Psych: COMMON NORMALS: mental status grossly normal Data 11/10/24 09:09 11/10/24 09:09 A&P Assessment and plan (1) CVA (cerebral vascular accident): Plan Acute CVA - With right sided weakness, -NIH stroke scale 5 - Out of tPA window - With history of CVA in the past, with right-sided weakness, but according to patient his weakness has significantly resolved Plan -Aspirin 81 mg daily -Atorvastatin 40 mg p.o. daily -Plavix 75 mg daily -IV fluids -CTA head and neck -MRI brain -Full code -Lovenox for DVT prophylaxis -PT OT -Speech therapy eval PDMP PDMP Reviewed: Not Reviewed Attestations Medical Necessity Statement*: Patient requires hospitalization, inpatient, greater than 2 midnights, for acute CVA Diagnoses CVA (cerebral vascular accident) I63.9
--- NOTE | 2024-11-10 13:20 | PC.NURSE ---
This nurse assumed care of pt at 1320.
[2024-11-10 13:42] LABS: Glucose Point of Care 99 mg/dL (70-110)
--- NOTE | 2024-11-10 13:48 | MR_ITS ---
WS: [id number] MRI BRAIN WITHOUT CONTRAST HISTORY: ams, right-sided weakness. COMPARISON: CT head 11/10/2024 TECHNIQUE: Diffusion imaging, multiplanar T1, T2 and FLAIR imaging obtained. Acute lacunar infarcts in the LEFT marquez radiata. There are additional remote infarcts bilaterally in the marquez radiata. Mild volume loss and small vessel disease. No intracranial hemorrhage. No hippocampal atrophy. Ventricles and extra-axial spaces are normal. No inferior displacement of cerebellar tonsils. The sella turcica and pituitary gland are unremarkable. Dural venous sinuses and tangirnaq of Gó[place] demonstrate no abnormality on this unenhanced studies. Paranasal sinuses: Clear. Mastoid air cells: Normal. Calvarium and scalp: No destructive calvarial lesions. Well-circumscribed nodule in the posterior LEFT parietal region is probably a sebaceous cyst. MR/MR head wo con* [id number] IMPRESSION: 1. Small LEFT marquez radiata acute infarcts. There are two acute small infarct s adjacent to each other. 2. Additional chronic small vessel disease and LEFT marquez radiata infarcts. 3. No hemorrhage.
--- NOTE | 2024-11-10 13:48 | CT_ITS ---
WS: [id number] CTA HEAD AND NECK TECHNIQUE: Contrast enhanced CTA of the head and neck with coronal and sagittal reformatted images and maximum intensity projection (MIP) images. NASCET criteria utilized. CLINICAL INFORMATION: cva COMPARISON: CT 08/28/2024 DLP: 1359.[address] scans at [facility] use at least one of these dose optimization techniques: automated exposure control; mA and/or kV adjustment per patient size (includes targeted exams where dose is matched to clinical indication); or iterative reconstruction. FINDINGS: RIGHT: RIGHT common carotid artery is patent. No significant RIGHT ICA stenosis. Retropharyngeal course of the RIGHT cervical ICA. RIGHT ICA is patent to the skull base. LEFT: LEFT common carotid artery is patent. No significant LEFT ICA stenosis. Retropharyngeal course of the LEFT cervical ICA. LEFT ICA is patent to the skull base. Both vertebral arteries are patent. Proximal basilar artery is patent. Normal vascularity to the [employer] territories bilaterally. Normal vascularity to the NGOZI and MCA territories bilaterally. No evidence of proximal flow-limiting stenosis. INTRACRANIAL CTA: CT/CT angio headneck* [id number] IMPRESSION: 1. No significant cervical ICA stenosis. Both ICAs are patent to the skull bas e. 2. Codominant and patent vertebral arteries bilaterally. 3. No flow-limiting intracranial stenosis. 4. Chronic infarcts in the LEFT marquez radiata extending into the internal cap tammy and LEFT thalamus previously described. Chronic lacunar infarct along the RIGHT posterior limb internal capsule.
[2024-11-10 13:50] LABS: Estmated Average Glucose 108; Hemoglobin A1C 5.4 % (4.0-6.0)
[2024-11-10] MEDS: pantoprazole 40 mg SDV IVP (13:55)
[2024-11-10] MEDS: dextrose 5%-sod chloride 0.9% 1,000 ML 75 ML IV (13:55)
[2024-11-10 14:01] LABS: Chol HDL Ratio 2.07 mg/dL (1.0-5.00); Cholesterol 112 mg/dL (0-200); HDL Cholesterol 54 mg/dL (60-100); LDL Cholesterol Calculated 40 mg/dL (50-129); LDL HDL Ratio 0.74 RATIO (0.00-3.22); Triglycerides 89 mg/dL (0-150)
[2024-11-10] MEDS: iohexol 350 mg/mL 500 mL Btl (per mL) IV (15:24)
[2024-11-10] MEDS: atorvastatin 40 mg Tablet PO (20:28)
[2024-11-11] VITALS: BP 122/78; PULSE 78; RESP 18; TEMP 36.4; O2SAT 95
[2024-11-11] MEDS: dextrose 5%-sod chloride 0.9% 1,000 ML 75 ML IV (02:31)
[2024-11-11 04:00] VITALS: BP 138/81; PULSE 79; RESP 18; TEMP 36.5; O2SAT 95
[2024-11-11 04:54] LABS: Basophils # 0.1 10^3/uL (0.0-0.1); Basophils % 1.1 %; Eosinophils # 0.2 10^3/uL (0.0-0.8); Eosinophils % 4.1 %; Hematocrit 38.9 % (37-53); Lymphocytes # 1.8 10^3/uL (0.8-4.8); Lymphocytes % 32.6 %; Mean Corpuscular HGB Conc 33.2 g/dL (30-55); Mean Corpuscular Hemoglobin 30.4 pg (27-33); Mean Corpuscular Volume 91.7 fl (82-101); Mean Platelet Volume 9.9 fL (7.4-10.4); Monocytes # 0.5 10^3/uL (0.2-0.9); Monocytes % 8.8 %; Neutrophils # 2.88 10^3/uL (1.8-7.7); Nucleated Red Blood Cells % 0 %; Platelet Count 189 10^3/cmm (157-399); Red Blood Count 4.24 10^6/uL (3.85-5.65); Red Cell Distribution Width 12.3 % (12.1-15.1); White Blood Count 5.43 10^3/uL (3.29-11.43)
[2024-11-11 05:21] LABS: Alanine Aminotransferase 27 U/L (0-41); Albumin Level 3.8 g/dL (3.5-5.2); Alkaline Phosphatase 94 U/L (40-130); Aspartate Amino Transferase 16 U/L (0-40); Blood Urea Nitrogen 12 mg/dL (6-20); Calcium 9.6 mg/dL (8.5-10.5); Carbon Dioxide 24 mmol/L (22-29); Chloride 107 mmol/L (98-107); Creatinine Clr Calc Pharmacy 185.0794; Globulin 2.4 g/dL (1.3-4.6); Glomerular Filtration Rate 118.4 mL/min (90-130); Glucose 114 mg/dL (65-115); Magnesium 1.9 mg/dL (1.7-2.3); Osmolality Calculated 293 mOsm/kg (285-295); Sodium 141 mmol/L (136-145); Total Bilirubin 0.4 mg/dL (0.15-1.2); Total Protein 6.2 g/dL (6.6-8.7)
[2024-11-11 07:51] VITALS: BP 135/77; PULSE 77; RESP 16; TEMP 36.4; O2SAT 95
[2024-11-11] MEDS: aspirin 81 mg EC Tablet PO (08:24)
[2024-11-11] MEDS: clopidogrel 75 mg Tablet PO (08:25)
--- NOTE | 2024-11-11 10:24 | PC.NURSE ---
retail merchandising coordinator rounds @0993 patient sitting at the edge of the bed, reports feeling better/improved, right leg heavy and hard to coordinate, had good results from PT/OT outpatient and is prepared to go back. Patient states he still has stroke education book from last time.
[2024-11-11 11:28] VITALS: BP 151/98; PULSE 76; RESP 18; TEMP 36.5; O2SAT 98
--- NOTE | 2024-11-11 13:09 | P.DS_ITS ---
Discharge Providers Date of Admission: 11/10/24 12:37 Date of Discharge: November 11, 2024 Attending Provider at Admission: Arie Serrano MD Attending Provider at Discharge: Arie Serrano MD Diagnoses at Discharge Discharge Diagnosis (1) CVA (cerebral vascular accident): Status: Acute Reason for Visit Reason for Visit: R side numbness, difficulty walking,blurred vision Hospital Course Hospital Course Jose Ramon Sebastian is a 54 year old male with a past medical history of right sided weakness. This is a 54-year-old male, with a past medical history of hypertension, obesity, who has a history of CVA with right-sided weakness, which has improved, from a CVA back in August 2024, not a TNKase candidate who presents [facility] for right sided weakness. Patient tells me he went to bed last night, nothing out of the ordinary, he woke up at about 350 this morning, noted right-sided weakness involving right arm, right leg, early in the morning he continued to have with right-sided deficits, right-sided weakness. Patient reports, right lower extremity weakness, right upper extr emity weakness, no visual deficits, no paresthesias, stroke alert was initiated at 8:41 AM 11/10/2024, NIH stroke scale 5, last known well normal was 9 PM 11/09/2024, not a candidate for tPA, CT head no evidence of intracranial hemorrhage or mass effect Patient was admitted to [facility] for acute CVA, right-sided weakness, NIH stroke scale 5, out of tPA window, with history of CVA in the past with right-sided weakness which had significantly resolved from his prior episode, on aspirin, Plavix, compliant with his medications Was monitored as inpatient, received inpatient PT OT, IV fluids, permissive hypertension - MRI brain MR/MR head wo con* [id number] IMPRESSION: 1. Small LEFT marquez radiata acute infarcts. There are two acute small infarcts adjacent to each other. 2. Additional chronic small vessel disease and LEFT marquez radiata infarcts. 3. No hemorrhage. CTA head and neck CT/CT angio headneck* [id number] IMPRESSION: 1. No significant cervical ICA stenosis. Both ICAs are patent to the skull base. 2. Codominant and patent vertebral arteries bilaterally. 3. No flow-limiting intracranial stenosis. 4. Chronic infarcts in the LEFT mraquez radiata extending into the internal capsule and LEFT thalamus previously described. Chronic lacunar infarct along the RIGHT posterior limb internal capsule. - On discharge he is alert oriented x 3, following all commands, no significant right facial droop, no slurring of his words, no visual deficits, right upper extremity strength is equal to the left, right lower extremity strength remains diminished compared to the left, 3 out of 5, but can ambulate without significant dizziness, - Discharged with outpatient physical therapy - Discharge with event monitor in place, follow-up with cardiology - Cardiac echo bubble study showed - Discharged on aspirin 81 mg daily - Discharged on atorvastatin 40 mg daily - Brilinta 90 mg twice daily, with a follow-up with neurology - Patient was advised if he were to have any recurrent strokelike symptoms immediately call [phone] - Resume blood pressure medications tomorrow - Discussed blood pressure management strategies, follow-up with primary care provider for weight loss strategies, A1c is 5.4, LDL 40, triglycerides 59, HDL 54 Physical Exam Const: COMMON NORMALS: no acute distress and patient oriented x3 Resp: COMMON NORMALS: normal respiratory effort, No retractions, No use of accessory muscles and clear to auscultation bilaterally AUSCULTATION: clear to auscultation bilaterally Cardio: COMMON NORMALS: regular rate, regular rhythm, S1 normal heart sound present and S2 normal heart sound present RATE: regular rate RHYTHM: regular rhythm HEART SOUNDS: S1 normal heart sound present and S2 normal heart sound present GI: COMMON NORMALS: Normal to inspection, nondistended, normoactive bowel sounds present, Soft to palpation, non-tender and no bruits PALPATION: Yes Soft to palpation Extremity: COMMON NORMALS: no pedal edema Neuro: COMMON NORMALS: patient oriented x3 Psych: COMMON NORMALS: mental status grossly normal Discharge Data Studies Completed and Pending Completed Studies During Hospitalization Category Date Time Status CT angio head neck [CT angio headneck* [id number]] Cat Scan 11/10/24 13:[address] head thrombolytic 01002 Stat Cat Scan 11/10/24 08:40 Completed MR head wo con* [id number] Routine MRI 11/10/24 13:48 Completed Pending at discharge Category Date Time Status Complete Blood Count w/Auto AM LABS Lab 11/12/24 04:00 Ordered Complete Blood Count w/Auto AM LABS Lab 11/13/24 04:00 Ordered Comprehensive Metabolic Panel AM LABS Lab 11/12/24 04:00 Ordered Comprehensive Metabolic Panel AM LABS Lab 11/13/24 04:00 Ordered Magnesium AM LABS Lab 11/12/24 04:00 Ordered Magnesium AM LABS Lab 11/13/24 04:00 Ordered Phosphorus AM LABS Lab 11/12/24 04:00 Ordered Phosphorus AM LABS Lab 11/13/24 04:00 Ordered CV. echo lmt w/w contras [id number] Stat Ultrasound 11/10/24 12:32 Taken Radiology Impressions Head CT 11/10/24 08:40 IMPRESSION: 1. No evidence of intracranial hemorrhage or mass effect. 2. Previously described infarcts in the LEFT marquez radiata are similar in appearance compared to 08/28/2024. 3. No new intracranial findings. Notified Ned Velazquez DO at 11/10/2024 9:09 AM. Head MRI 11/10/24 13:48 IMPRESSION: 1. Small LEFT marquez radiata acute infarcts. There are two acute small infarcts adjacent to each other. 2. Additional chronic small vessel disease and LEFT marquez radiata infarcts. 3. No hemorrhage. Head/Neck CTA 11/10/24 13:48 IMPRESSION: 1. No significant cervical ICA stenosis. Both ICAs are patent to the skull base. 2. Codominant and patent vertebral arteries bilaterally. 3. No flow-limiting intracranial stenosis. 4. Chronic infarcts in the LEFT marquez radiata extending into the internal capsule and LEFT thalamus previously described. Chronic lacunar infarct along the RIGHT posterior limb internal capsule. Laboratory Results WBC 5.43 10^3/uL (3.29-11.43) 11/11/24 04:19 RBC 4.24 10^6/uL (3.85-5.65) 11/11/24 04:19 Hgb 12.90 g/dL (11.27-16.99) 11/11/24 04:19 Hct 38.9 % (37-53) 11/11/24 04:19 MCV 91.7 fl (82-101) 11/11/24 04:19 MCH 30.4 pg (27-33) 11/11/24 04:19 MCHC 33.2 g/dL (30-55) 11/11/24 04:19 RDW 12.3 % (12.1-15.1) 11/11/24 04:19 Plt Count 189 10^3/cmm (157-399) 11/11/24 04:19 MPV 9.9 fL (7.4-10.4) 11/11/24 04:19 Neut % (Auto) 53.0 % 11/11/24 04:19 Lymph % (Auto) 32.6 % 11/11/24 04:19 [place] % (Auto) 8.8 % 11/11/24 04:19 Eos % (Auto) 4.1 % 11/11/24 04:19 Baso % (Auto) 1.1 % 11/11/24 04:19 Neut # (Auto) 2.88 10^3/uL (1.8-7.7) 11/11/24 04:19 Lymph # (Auto) 1.8 10^3/uL (0.8-4.8) 11/11/24 04:19 [place] # (Auto) 0.5 10^3/uL (0.2-0.9) 11/11/24 04:19 Eos # (Auto) 0.2 10^3/uL (0.0-0.8) 11/11/24 04:19 Baso # (Auto) 0.1 10^3/uL (0.0-0.1) 11/11/24 04:19 Nucleated RBC % (auto) 0 % 11/11/24 04:19 Nucleated RBCs # 0.0 /100WBC 11/11/24 04:19 PT 12.80 SECONDS (12.1-14.9) 11/10/24 09:09 INR 0.90 (0.8-1.2) 11/10/24 09:09 APTT 29.1 SECONDS (23.9-36.7) 11/10/24 09:09 Sodium 141 mmol/L (136-145) 11/11/24 04:19 Potassium 4.0 mmol/L (3.5-5.1) 11/11/24 04:19 Chloride 107 mmol/L (98-107) 11/11/24 04:19 Carbon Dioxide 24 mmol/L (22-29) 11/11/24 04:19 Anion Gap 14.0 (5-19) 11/11/24 04:19 BUN 12 mg/dL (6-20) 11/11/24 04:19 Creatinine 0.7 mg/dL (0.7-1.2) 11/11/24 04:19 GFR Calculation 118.4 mL/min (90-130) 11/11/24 04:19 Glucose 114 mg/dL (65-115) 11/11/24 04:19 POC Glucose 99 mg/dL (70-110) 11/10/24 08:33 Estimat Average Glucose 108 11/10/24 09:09 Hemoglobin A1c 5.4 % (4.0-6.0) 11/10/24 09:09 Calculated Osmolality 293 mOsm/kg (285-295) 11/11/24 04:19 Calcium 9.6 mg/dL (8.5-10.5) 11/11/24 04:19 Phosphorus 3.0 mg/dL (2.5-4.5) 11/11/24 04:19 Magnesium 1.9 mg/dL (1.7-2.3) 11/11/24 04:19 Total Bilirubin 0.4 mg/dL (0.15-1.2) 11/11/24 04:19 AST 16 U/L (0-40) 11/11/24 04:19 ALT 27 U/L (0-41) 11/11/24 04:19 Alkaline Phosphatase 94 U/L (40-130) 11/11/24 04:19 Total Protein 6.2 g/dL (6.6-8.7) L 11/11/24 04:19 Albumin 3.8 g/dL (3.5-5.2) 11/11/24 04:19 Globulin 2.4 g/dL (1.3-4.6) 11/11/24 04:19 Triglycerides 89 mg/dL (0-150) 11/10/24 09:09 Cholesterol 112 mg/dL (0-200) 11/10/24 09:09 LDL Cholesterol, Calc 40 mg/dL (50-129) L 11/10/24 09:09 HDL Cholesterol 54 mg/dL (60-100) L 11/10/24 09:09 LDL/HDL Ratio 0.74 RATIO (0.00-3.22) 11/10/24 09:09 Cholesterol/HDL Ratio 2.07 mg/dL (1.0-5.00) 11/10/24 09:09 TSH 1.80 uIU/mL (0.27-4.20) 11/10/24 09:09 Urine Color Yellow (Yellow) 11/10/24 10:03 Urine Appearance Clear (CLEAR) 11/10/24 10:03 Urine pH 5 (5-7) 11/10/24 10:03 Ur Specific [place] 1.015 (1.005-1.030) 11/10/24 10:03 Urine Protein Trace (Negative) 11/10/24 10:03 Urine Glucose (UA) Norm (Normal) 11/10/24 10:03 Urine Ketones Negative (Negative) 11/10/24 10:03 Urine Blood Neg (Negative) 11/10/24 10:03 Urine Nitrate Negative (Negative) 11/10/24 10:03 Urine Bilirubin 1+ (Negative) H 11/10/24 10:03 Urine Urobilinogen 1 mg/dL (Negative) H 11/10/24 10:03 Ur Leukocyte Esterase Negative (Negative) 11/10/24 10:03 Urine RBC 0-2 /hpf (0-2) 11/10/24 10:03 Urine WBC 0-5 /hpf (0-5) 11/10/24 10:03 Ur Squamous Epith Cells 0-5 /hpf (0-5) 11/10/24 10:03 Amorphous Sediment Not Reportable 11/10/24 10:03 Urine Bacteria None seen /hpf (NONE) 11/10/24 10:03 Hyaline Casts 0.81 /lpf 11/10/24 10:03 Urine Opiates Screen Negative ng/mL (Negative) 11/10/24 10:03 Ur Barbiturates Screen Negative ng/mL (Negative) 11/10/24 10:03 Ur Phencyclidine Scrn Negative ng/mL (Negative) 11/10/24 10:03 Ur Amphetamines Screen Negative ng/mL (Negative) 11/10/24 10:03 U Benzodiazepines Scrn Negative ng/mL (Negative) 11/10/24 10:03 Urine Cocaine Screen Negative ng/mL (Negative) 11/10/24 10:03 U Marijuana (THC) Screen Negative ng/mL (Negative) 11/10/24 10:03 Vitals Last Vital Signs Temp 97.7 F 11/11/24 11:28 Pulse 76 11/11/24 11:28 Resp 18 11/11/24 11:28 BP 151/98 11/11/24 11:28 Pulse Ox 98 11/11/24 11:28 O2 Del Method Room Air 11/11/24 11:28 Discharge Plan Discharge Patient Disposition: Home Condition: Stable Prescriptions: New Brilinta 90 mg tablet 90 mg PO BID 30 Days Qty: 60 0RF Continued losartan 50 mg tablet 50 mg PO BID atorvastatin 40 mg tablet 40 mg PO BEDTIME aspirin 81 mg tablet,delayed release (DR/EC) 81 mg PO DAILY amlodipine 10 mg tablet 10 mg PO DAILY metoprolol succinate 25 mg tablet extended release 24 hr 25 mg PO DAILY Discontinued clopidogrel 75 mg tablet 75 mg PO DAILY Discharge Orders: Discharge Order (Routine); Ordered 11/11/24 Ordered By: Arie Serrano Other Ambulatory Orders: Physical Therapy Eval and Treat Outpatient (Order) Timeframe: 2 Days Facility: [facility] - Location: Physical Therapy [place] Ordered By: Arie Serrano MCT/Event Monitor 30 Days (Routine) Timeframe: 1 Day Facility: [facility] - Location: Radiology Ordered By: Arie Serrano Referrals: [facility] [Referring] - Rico Barrow MD [Physician] - 1-3 days (We have notified your physician's clinic of the need for a follow-up appointment to be scheduled. If you have not heard from them within the next 2 business days, please call them directly. ) , STATIONARY FIREMAN [Nurse Practitioner] - 11/13/24 2:00 pm Chano Pacheco MD [Physician] - 1 month Discharge Diet: Cardiac Discharge Activity: Resume usual activity Patient Instructions: Ticagrelor (By mouth) (Brilinta), Ischemic Stroke (DC), Left Hemispheric Stroke (GEN), Opioid Safety, Pain Management, Stroke Stoplight Activity Restrictions/Additional Instructions: 30 day event monitor scheduled for November 13, 2024 @ 1 pm - If any recurrent strokelike symptoms please call 911 - Take aspirin 81 mg daily - Stop Plavix - Switch to Brilinta 90 mg p.o. twice daily -Follow-up with cardiology in 1 month -Follow-up with neurology - Please continue outpatient physical therapy Discharge Attestations Time Spent in Discharge Care*: greater than 30 min Quality Metrics Clinical Quality Measures [ Cerebrovascular Accident { Contraindication to Antithrombotic: None; antithrombotic prescribed; Contraindication to Anticoagulation: Overlap treatment not indicated; Contraindication to Statin: None; Statin prescribed;}] Coding Level of Care Code 32121 Total time (in minutes) for Discharge: 45 Diagnoses CVA (cerebral vascular accident) I63.9
[2024-11-11 13:21] VITALS: BP 151/98; PULSE 76; RESP 18; TEMP 36.5; O2SAT 98
--- NOTE | 2024-11-11 13:41 | PC.NURSE ---
discharge instructions provided to pt. NO questions or concerns voiced at this time. Pt to private vehicle via wheelchair with all belonings.
== END 2024-11-11 13:43 | disposition home or self-care (01) ==
LOC: ER 08:57 → MEDSURG 12:37
PROVIDERS: Admitting Provider Family Medicine; Emergency Provider Family Medicine; Visit Provider Family Medicine
DX: I63.9 Cerebral infarction, unspecified (principal); R29.705 NIHSS score 5; Z79.82 Long term (current) use of aspirin; E66.01 Morbid (severe) obesity due to excess calories; Z68.41 Body mass index [BMI] 40.0-44.9, adult; I69.951 Hemiplegia and hemiparesis following unspecified cerebrovascular disease affecting right dominant side; I10 Essential (primary) hypertension; Z86.79 Personal history of other diseases of the circulatory system; I63.81 Other cerebral infarction due to occlusion or stenosis of small artery; Z79.02 Long term (current) use of antithrombotics/antiplatelets; Z82.3 Family history of stroke
CPT/HCPCS: 36415; 36416; 70450; 70496; 70498; 70551; 80053; 80061; 80306; 81001; 82962; 83036; 83735; 84100; 84443; 85025; 85610; 85730; 93005; 94664; 96361; 96374; 99285; C8924; G0378; J2470; J7042; J9999

== ENCOUNTER 2024-11-17 13:57 | Outpatient (RCR) | payer OTHER, SELFPAY | END 2024-12-03 23:59 | disposition home or self-care (01) | LOC: SPT 13:57 | DX: I63.9 Cerebral infarction, unspecified (principal); R53.1 Weakness; R26.89 Other abnormalities of gait and mobility | CPT/HCPCS: 97110; 97112; 97162 ==

== ENCOUNTER 2024-11-24 07:49 | Observation (INO) | payer OTHER, SELFPAY ==
[2024-11-24] VITALS (12 sets, daily range): BP systolic 121–169; BP diastolic 74–108; PULSE 41–82; RESP 15–20; TEMP 36.4–36.6; O2SAT 96–100; BMI 43.0
--- NOTE | 2024-11-24 07:54 | XR_ITS ---
WS: [id number] Exam: XR chest 1V portable [id number] Date/Time of Exam: 11/24/2024 8:09 AM Reason For Exam: dyspnea/cough No priors. Lungs are clear and fully expanded. Unremarkable cardiomediastinal silhouette for technique. No pleural effusions. A battery pack superimposes the mediastinum. Unremarkable bony structures. XR/XR chest 1V portable [id number] IMPRESSION: 1. No acute cardiopulmonary process.
--- NOTE | 2024-11-24 07:54 | ECG_ITS ---
[employer] Test Date: 2024-11-24 Pat Name: Jose Ramon Sebastian Department: Room: Gender: Male Integrity Assessor: : 1970 Requested By: Ned France Order Number: [id number] Jeb MD: Siria Ledesma M.D. Measurements Intervals [place] Rate: 87 P: 23 PA: 143 QRS: 9 QRSD: 100 T: 12 QT: 328 QTc: 397 Interpretive Statements SINUS RHYTHM MINIMAL VOLTAGE CRITERIA FOR LVH, CONSIDER NORMAL VARIANT [MEETS CRITERIA IN ONE OF: R(aVL), S(V1), R(V5), R(V5/V6)+S(V1)] POSSIBLE ANTERIOR MYOCARDIAL INFARCTION , PROBABLY OLD [30 ms Q WAVE IN V3/V4, OR R < 0.2 mV IN V4] Compared to ECG 11/10/2024 09:10:10 Myocardial infarct finding now present Electronically Signed On 11-24-2024 16:41:35 CDT by Siria Ledesma M.D. [id number]
--- NOTE | 2024-11-24 07:56 | W.ED.GENADLT ---
HPI - General Adult General: Chief complaint: Arrhythmia/Palpitations Stated complaint: abnormal Heart monitor reading sent from h/c Time Seen by Provider: 11/24/24 07:54 History of Present Illness: 54-year-old male presents to the emergency room directed here by Dr. Serrano. He was recently hospitalized with a stroke. At the time of discharge she was discharged home on a Holter monitor Holter monitor over the weekend showed sinus pauses some extending up to 4 seconds. He is on metoprolol. These occurred late last night 1 at 1:48 AM this morning and 1 at 11:39 PM last evening. Patient was completely asymptomatic of them. He has not had any further symptoms this morning. He had gotten up to go to work he taken all of his regular medications he has not had any further problems. Associated symptoms: Reports palpitations; Deny chest pain, dyspnea or rash Related Data Home Medications ?Medication ?Instructions ?Recorded ?Confirmed losartan 50 mg tablet 50 mg PO BID 09/03/24 11/24/24 amlodipine 10 mg tablet 10 mg PO DAILY 11/10/24 11/24/24 aspirin 81 mg tablet,delayed 81 mg PO DAILY 11/10/24 11/24/24 release atorvastatin 40 mg tablet 40 mg PO BEDTIME 11/10/24 11/24/24 metoprolol succinate 25 mg 25 mg PO DAILY 11/10/24 11/24/24 tablet,extended release 24 hr Previous Rx's ?Medication ?Instructions ?Recorded ticagrelor 90 mg tablet (Brilinta) 90 mg PO BID 30 days #60 tabs 11/11/24 Allergies Allergy/AdvReac Type Severity Reaction Status Date / Time No Known Allergies Allergy Verified 09/03/24 07:49 Review of Systems Const: Denies: fever(s) or chills Card: Reports: palpitations; Denies: chest pain Resp: Denies: dyspnea GI: Denies: abdominal pain : Denies: dysuria, urinary frequency or urinary urgency Musc: Denies: neck pain or back pain Skin/Breast: Denies: rash PFSH ED PFSH: Medical History Morbid obesity Surgical History No pertinent past surgical history Social History Smoking and tobacco/nicotine status: former use of tobacco/nicotine Physical Exam Const: GENERAL APPEARANCE: cooperative ORIENTATION/CONSCIOUSNESS: Yes awake, Yes oriented to person, Yes oriented to place and Yes oriented to time HENMT: COMMON NORMALS: normocephalic, atraumatic and hearing grossly normal bilaterally HEAD & SCALP: normocephalic and atraumatic Resp: COMMON NORMALS: normal respiratory effort, No retractions, No use of accessory muscles and clear to auscultation bilaterally AUSCULTATION: clear to auscultation bilaterally Cardio: COMMON NORMALS: regular rate, regular rhythm and No murmurs present (Cardio) RATE: regular rate RHYTHM: regular rhythm GI: COMMON NORMALS: Soft to palpation and No hepatosplenomegaly present AUSCULTATION: Yes normoactive bowel sounds PALPATION: Yes Soft to palpation, No Tenderness to palpation present (GI), No Guarding due to palpation present (GI) and Yes No hepatosplenomegaly present Extremity: COMMON NORMALS: normal to inspection, capillary refill normal, no clubbing, cyanosis or edema, no calf tenderness and no pedal edema Neuro: SENSORIUM/ORIENTATION: Yes oriented to person, Yes oriented to place and Yes oriented to time Skin: COMMON NORMALS: no rashes or lesions noted GENERAL SKIN EXAM: no rashes or lesions noted Course Vital Signs: Vital signs: Vital Signs Temperature 97.5 F L 11/24/24 07:55 Pulse Rate 70 11/24/24 11:26 Respiratory Rate 15 11/24/24 07:55 Blood Pressure 140/92 11/24/24 11:26 Pulse Oximetry 98 11/24/24 11:26 Oxygen Delivery Me thod Room Air 11/24/24 11:45 MDM - General Adult Medical Decision Making Patient had 2 sinus pauses last night 1 at 3.31-4.1 is relatively asymptomatic after he had stopped his losartan he tells me but continued his metoprolol. He did take a dose this morning. Workup otherwise negative so far he has not had any pauses while he has been here he did recently have a CVA. Will hold his metoprolol labs to make sure he does not have any further pauses he may need his medications adjusted discussed with the hospitalist and with cardiology. Cardiology will see if he has any further pauses. Medical Records Copy note from Dr. Serrano - Spoke to Dr. Mosley, patient had significant sinus pauses over the night, up to 4 seconds, recommended patient to come to the hospital - Spoke to patient this morning, he was asymptomatic during the night - Unfortunately he is already taken his beta-faraz - He feels okay, no lightheaded, dizziness, no nausea, no vomiting, no chest pain - Advised him to come to the emergency room immediately - Recommended him to go to the emergency room for sinus pauses- Potentially related to beta-faraz?, Will need blood work, EKG troponin series - Discussed morbidity of mortality, patient voiced understanding, all question answered, agreed to proceed Lab Data 11/24/24 08:06 11/24/24 08:06 Radiology Impressions Chest X-Ray 11/24/24 07:54 IMPRESSION: 1. No acute cardiopulmonary process. Laboratory Results WBC 6.90 10^3/uL (3.29-11.43) 11/24/24 08:06 RBC 4.60 10^6/uL (3.85-5.65) 11/24/24 08:06 Hgb 14.40 g/dL (11.27-16.99) 11/24/24 08:06 Hct 42.1 % (37-53) 11/24/24 08:06 MCV 91.5 fl (82-101) 11/24/24 08:06 MCH 31.3 pg (27-33) 11/24/24 08:06 MCHC 34.2 g/dL (30-55) 11/24/24 08:06 RDW 12.4 % (12.1-15.1) 11/24/24 08:06 Plt Count 234 10^3/cmm (157-399) 11/24/24 08:06 MPV 9.9 fL (7.4-10.4) 11/24/24 08:06 Neut % (Auto) 54.0 % 11/24/24 08:06 Lymph % (Auto) 34.5 % 11/24/24 08:06 [place] % (Auto) 8.0 % 11/24/24 08:06 Eos % (Auto) 2.0 % 11/24/24 08:06 Baso % (Auto) 1.2 % 11/24/24 08:06 Neut # (Auto) 3.73 10^3/uL (1.8-7.7) 11/24/24 08:06 Lymph # (Auto) 2.4 10^3/uL (0.8-4.8) 11/24/24 08:06 [place] # (Auto) 0.6 10^3/uL (0.2-0.9) 11/24/24 08:06 Eos # (Auto) 0.1 10^3/uL (0.0-0.8) 11/24/24 08:06 Baso # (Auto) 0.1 10^3/uL (0.0-0.1) 11/24/24 08:06 Nucleated RBC % (auto) 0 % 11/24/24 08:06 Nucleated RBCs # 0.0 /100WBC 11/24/24 08:06 Sodium 140 mmol/L (136-145) 11/24/24 08:06 Potassium 4.3 mmol/L (3.5-5.1) 11/24/24 08:06 Chloride 105 mmol/L (98-107) 11/24/24 08:06 Carbon Dioxide 26 mmol/L (22-29) 11/24/24 08:06 Anion Gap 13.3 (5-19) 11/24/24 08:06 BUN 14 mg/dL (6-20) 11/24/24 08:06 Creatinine 0.8 mg/dL (0.7-1.2) 11/24/24 08:06 GFR Calculation 101.5 mL/min (90-130) 11/24/24 08:06 Glucose 99 mg/dL (65-115) 11/24/24 08:06 Calculated Osmolality 291 mOsm/kg (285-295) 11/24/24 08:06 Calcium 10.2 mg/dL (8.5-10.5) 11/24/24 08:06 Total Bilirubin 0.6 mg/dL (0.15-1.2) 11/24/24 08:06 AST 20 U/L (0-40) 11/24/24 08:06 ALT 28 U/L (0-41) 11/24/24 08:06 Alkaline Phosphatase 122 U/L (40-130) 11/24/24 08:06 Troponin T Baseline 8 ng/L (0-15) 11/24/24 08:06 Troponin T 120 Minute 6.39 ng/L (0-15) 11/24/24 09:58 Delta Troponin T -1.61 ABS# (0-10) L 11/24/24 09:58 Total Protein 7.2 g/dL (6.6-8.7) 11/24/24 08:06 Albumin 4.8 g/dL (3.5-5.2) 11/24/24 08:06 Globulin 2.4 g/dL (1.3-4.6) 11/24/24 08:06 TSH 2.01 uIU/mL (0.27-4.20) 11/24/24 08:06 All radiology interpretation(s) finalized by discharge Discharge Plan Discharge Patient Disposition: Placed in Observation Admit Provider: Danya Wilkinson Clinical Impression: Sinus pause, Hypertension, History of CVA (cerebrovascular accident) Coding Level of Care Code ED Network Analyst for Jesu Nash
[2024-11-24 08:14] LABS: Basophils # 0.1 10^3/uL (0.0-0.1); Basophils % 1.2 %; Eosinophils # 0.1 10^3/uL (0.0-0.8); Hematocrit 42.1 % (37-53); Lymphocytes # 2.4 10^3/uL (0.8-4.8); Lymphocytes % 34.5 %; Mean Corpuscular HGB Conc 34.2 g/dL (30-55); Mean Corpuscular Hemoglobin 31.3 pg (27-33); Mean Corpuscular Volume 91.5 fl (82-101); Mean Platelet Volume 9.9 fL (7.4-10.4); Monocytes # 0.6 10^3/uL (0.2-0.9); Neutrophils # 3.73 10^3/uL (1.8-7.7); Nucleated Red Blood Cells % 0 %; Platelet Count 234 10^3/cmm (157-399); Red Cell Distribution Width 12.4 % (12.1-15.1)
[2024-11-24 08:38] LABS: Troponin(5th) Baseline 8 ng/L (0-15)
[2024-11-24 08:48] LABS: Alanine Aminotransferase 28 U/L (0-41); Albumin Level 4.8 g/dL (3.5-5.2); Alkaline Phosphatase 122 U/L (40-130); Anion Gap 13.3 (5-19); Aspartate Amino Transferase 20 U/L (0-40); Blood Urea Nitrogen 14 mg/dL (6-20); Calcium 10.2 mg/dL (8.5-10.5); Carbon Dioxide 26 mmol/L (22-29); Chloride 105 mmol/L (98-107); Creatinine Clr Calc Pharmacy 163.6073; Globulin 2.4 g/dL (1.3-4.6); Glomerular Filtration Rate 101.5 mL/min (90-130); Glucose 99 mg/dL (65-115); Osmolality Calculated 291 mOsm/kg (285-295); Potassium 4.3 mmol/L (3.5-5.1); Sodium 140 mmol/L (136-145); Thyroid Stimulating Hormone 2.01 uIU/mL (0.27-4.20); Total Bilirubin 0.6 mg/dL (0.15-1.2); Total Protein 7.2 g/dL (6.6-8.7)
--- NOTE | 2024-11-24 10:03 | ECG_ITS ---
[employer] Test Date: 2024-11-24 Pat Name: Jose Ramon Sebastian Department: Room: Gender: Male Mercerizer: : 1970 Requested By: Ned France Order Number: [id number] Jeb MD: Siria Ledesma M.D. Measurements Intervals [place] Rate: 58 P: 14 PA: 129 QRS: 11 QRSD: 102 T: 8 QT: 373 QTc: 366 Interpretive Statements SINUS BRADYCARDIA WITH SINUS ARRHYTHMIA MODERATE VOLTAGE CRITERIA FOR LVH, CONSIDER NORMAL VARIANT [MEETS CRITERIA IN ONE OF: R(aVL), S(V1), R(V5), R(V5/V6)+S(V1)] Compared to ECG 11/24/2024 07:54:30 Sinus rhythm no longer present Myocardial infarct finding no longer present Electronically Signed On 11-26-2024 08:51:34 CDT by Siria Ledesma M.D. [id number] [id number]
[2024-11-24 10:26] LABS: Troponin 5 2HR 6.39 ng/L (0-15); Troponin 5 2HR Delta -1.61 ABS# (0-10)
--- NOTE | 2024-11-24 12:22 | PM.HP ---
Providers/Chief Complaint Admitting Physician: Danya Wilkinson MD Chief Complaint: abnormal Heart monitor reading sent from h/c History of Present Illness Jose Ramon Sebastian is a 54 year old male with past medical history of hypertension, obesity, who has a history of CVA with right-sided weakness, which has improved, from a CVA back in August 2024, not a TNKase candidate was imformed to come to ER for abnormal holter readings. He was recently admitted on 11/10/24 for right-sided weakness. Was evaluated for stroke but CT head showed no evidence of intracranial hemorrhage or mass effect. Since this was the second episode of questionable stroke, he was discharged home with Holter monitor for 30 days. This morning he was informed by the Holter [employer] about the sinus pauses and recommended to come to ER for further evaluation. On Holter recordings he was found to have sinus pauses x 2, 3.3 seconds and 4.1 seconds respectively. He denies any complaint of chest pain, shortness of breath, dizziness, palpitations, nausea/vomiting. He was all well, got up this morning at 5 AM, took his home medications including aspirin, atorvastatin, losartan, metoprolol, Brilinta and amlodipine and went to work. He received a call from the [employer]ter [employer] while he was at work. Review of Systems General: Reports: 10 or more systems reviewed and unremarkable except in HPI and below Medications/Allergies Home Medications ?Medication ?Instructions ?Recorded ?Confirmed ?Last Taken ?Type losartan 50 mg tablet 50 mg PO BID 09/03/24 11/24/24 11/24/24 05:00 History amlodipine 10 mg tablet 10 mg PO DAILY 11/10/24 11/24/24 11/24/24 05:00 History aspirin 81 mg tablet,delayed 81 mg PO DAILY 11/10/24 11/24/24 11/24/24 05:00 History release atorvastatin 40 mg tablet 40 mg PO BEDTIME 11/10/24 11/24/24 11/23/24 20:00 History metoprolol succinate 25 mg 25 mg PO DAILY 11/10/24 11/24/24 11/24/24 05:00 History tablet,extended release 24 hr ticagrelor 90 mg tablet (Brilinta) 90 mg PO BID 30 days #60 tabs 11/11/24 11/24/24 11/24/24 05:00 Rx Allergies Allergy/AdvReac Type Severity Reaction Status Date / Time No Known Allergies Allergy Verified 09/03/24 07:49 PFSH Acute PFSH: Medical History Morbid obesity Surgical History No pertinent past surgical history Social History Smoking and tobacco/nicotine status: former use of tobacco/nicotine Vitals/I&O/Wt Last Vital Signs Temp 97.5 F L 11/24/24 07:55 Pulse 70 11/24/24 11:26 Resp 15 11/24/24 07:55 BP 140/92 11/24/24 11:26 Pulse Ox 98 11/24/24 11:26 O2 Del Method Room Air 11/24/24 11:13 Weight last 48 hrs Weight 147.871 kg Weight 147.871 kg Physical Exam Narrative: He is alert awake oriented x 3, obese, not in acute distress Chest clear to auscultation bilaterally Cardiovascular normal heart sounds no murmurs Abdomen soft nontender nondistended normal bowel sounds Extremities no edema noted bilateral lower extremity Neurological 5/5 power in upper and lower extremities, no sensory deficits. He has no residual deficits but just has minimal limp in right lower extremity while walking Data 11/24/24 08:06 11/24/24 08:06 A&P Assessment and plan (1) Sinus pause: (2) Hypertension: (3) CVA (cerebral vascular accident): (4) Morbid obesity: Plan 54 year old male with past medical history of hypertension, obesity, who has a history of CVA with right-sided weakness, which has improved, from a CVA back in August 2024, not a TNKase candidate was imformed to come to ER for abnormal holter readings. This morning he was informed by the Holter company about the sinus pauses and recommended to come to ER for further evaluation. On Holter recordings he was found to have sinus pauses x 2, 3.3 seconds and 4.1 seconds respectively. #Asymptomatic sinus pauses-etiology unknown/medication induced He was started on p.o. metoprolol 25 mg daily last admission on 11/10/24. Initial EKG was normal sinus rhythm, no acute ST-T changes Repeat EKG showed sinus bradycardia at 58 bpm with sinus arrhythmia, no acute ST-T changes Will admit to [facility] Continue cardiac telemetry monitoring Hold p.o. metoprolol Will continue HOUSING [employer]IST[employer] aspirin, atorvastatin, amlodipine and losartan. Cardiology consulted in ED, follow-up for further recommendation Labs reviewed and are acceptable. #Right-sided CVA-no residual deficits except limping and right lower extremity Patient goes for PT twice a week Will get inpatient PT eval and treat Cardiac diet DVT prophylaxis with SCD CODE STATUS discussed with the patient, he is full code PDMP PDMP Reviewed: Not Reviewed Attestations Medical Necessity Statement*: He needs continued hospitalization not crossing 2 midnights for monitoring of sinus pauses with telemetry monitoring, holding metoprolol and supportive care Time Spent in Patient Care: 35minutes Coding Level of Care Code Acute Code for Chg Fwd Diagnoses Sinus pause I45.5 Hypertension I10 CVA (cerebral vascular accident) I63.9 Morbid obesity E66.01 Time Spent (min) 35
--- NOTE | 2024-11-24 14:41 | ECG_ITS ---
[facility] 2024[facility]24 Pat Name: Jose Ramon Sebastian Department: Room: 103 Gender: Male Caption Writer: : 1970 Requested By: Ned France Order Number: [id number] Jeb MD: Siria Ledesma M.D. Measurements Intervals [place] Rate: 59 P: 17 CT: 134 QRS: 14 QRSD: 101 T: 34 QT: 398 QTc: 395 Interpretive Statements SINUS BRADYCARDIA WITH SINUS ARRHYTHMIA Compared to ECG 11/24/2024 09:58:46 No significant changes Electronically Signed On 11-24-2024 18:54:29 CDT by Siria Ledesma M.D. [email or web address]
[2024-11-24 16:59] LABS: Bilirubin Urine Negative (Negative); Blood Urine Negative (Negative); Glucose Urine UA Negative (Normal); Ketones Urine Negative (Negative); Leukocyte Esterase Urine Negative (Negative); Nitrate Urine Negative (Negative); Protein Urine Negative (Negative); Specific Gravity, Urine 1.025 (1.005-1.030); Urine Appearance Clear (CLEAR); Urine Color Yellow (Yellow)
[2024-11-24 17:01] LABS: Add Urine Microscopic? YES; Bacteria Urine None Seen /hpf; Hyaline Casts Urine 0.81 /lpf; RBC Urine 0-2 /hpf (0-2); Squamous Epithelial Cell Urine 0-5 /hpf (0-5); WBC Urine 0-5 /hpf (0-5)
[2024-11-24 17:09] LABS: Add Urine Culture? No
[2024-11-24] MEDS: losartan 50 mg Tablet PO (18:22)
[2024-11-24] MEDS: ticagrelor 90 mg Tablet PO (18:27)
--- NOTE | 2024-11-24 19:51 | PM.CONSULT ---
Providers/Reason For Consult Consulting Physician/Specialty*: GABE Ledesma MD/cardiology Reason for Consult*: Patient with the bradycardia Requesting Physician: Dr. Wilkinson Attending Physician: Danya Wilkinson MD History of Present Illness History of Present Illness Jose Ramon Sebastian is a 54 year old male with a history of recurrent CVA, was found to have episodes of sinus bradycardia/pauses on the event monitor. He is admitted to the hospital for further evaluation and management.this patient was recently discharged from the hospital where he was admitted with another episode of left hemispheric stroke. He was discharged home with an event monitor. The event monitor was found to have episodes of pauses and severe bradycardia occurring around midnight or senior java web developer hours. He had several pauses of more than 3 seconds, the longest one being of 4.2 seconds. He might have had a 7 or 8 such pauses so far over the last 10 days. Apparently he did not have any symptoms with these episodes. All of them occurred around midnight or senior java web developer hours. This patient has no history for dizziness or syncopal episodes. He is scheduled to have a study for sleep apnea. He has not been on any medications up until his stroke in August of this year. Currently he is on antihypertensive medications and lipid-lowering agents. He is taking metoprolol succinate 25 mg p.o. daily in addition to the amlodipine and losartan for blood pressure. He is taking the atorvastatin for the dyslipidemia and Brilinta for the CVA. He has no chest pain or chest tightness. No unusual shortness of breath. No history for any cardiac illnesses in the past. No history of early cardiac arrhythmia. Denies any smoking abuse or alcohol abuse. No significant family history for premature vascular atherosclerotic heart disease. His mother had congestive heart failure in her 60s. Paternal grandmother also had some heart problems. No other relevant family history. No significant family history for any cardiac arrhythmia. Review of Systems Narrative: CONSTITUTIONAL: No fever or chills. EYES: No blurring of vision or other visual disturbances lately. ENT: No hoarseness of voice, auditory disturbances or sore throat. CARDIOVASCULAR: As mentioned above. RESPIRATORY: No significant cough. GASTROINTESTINAL: No hematemesis or melena. GENITOURINARY: No dysuria or hematuria. INTEGUMENTARY: No skin rashes or history of skin cancer. NEURO: No transient ischemic attacks or amaurosis. PSYCHIATRIC: No history of psychosis or major depression. HEMATOLOGIC: No bleeding disorders or significant anemia. ENDOCRINE: No history of polyuria or polydipsia. MUSCULOSKELETAL: No recent joint pain or swelling. ALLERGY/IMMUNOLOGY: As mentioned above. Medications/Allergies Home Medications ?Medication ?Instructions ?Recorded ?Confirmed ?Last Taken ?Type losartan 50 mg tablet 50 mg PO BID 09/03/24 11/24/24 11/24/24 05:00 History amlodipine 10 mg tablet 10 mg PO DAILY 11/10/24 11/24/24 11/24/24 05:00 History aspirin 81 mg tablet,delayed 81 mg PO DAILY 11/10/24 11/24/24 11/24/24 05:00 History release atorvastatin 40 mg tablet 40 mg PO BEDTIME 11/10/24 11/24/24 11/23/24 20:00 History metoprolol succinate 25 mg 25 mg PO DAILY 11/10/24 11/24/24 11/24/24 05:00 History tablet,extended release 24 hr ticagrelor 90 mg tablet (Brilinta) 90 mg PO BID 30 days #60 tabs 11/11/24 11/24/24 11/24/24 05:00 Rx Allergies Allergy/AdvReac Type Severity Reaction Status Date / Time No Known Allergies Allergy Verified 09/03/24 07:49 Current Medications Generic Name Dose Route Start Last Admin Trade Name Freq PRN Reason Stop Dose Admin Losartan Potassium 50 mg 11/24/24 18:00 11/24/24 18:22 Losartan 50 Mg Tablet PO 50 mg BID CIRO Administration Ticagrelor 90 mg 11/24/24 18:00 11/24/24 18:27 Ticagrelor 90 Mg Tablet PO 90 mg BID CIRO Administration PFSH Acute PFSH: Medical History Morbid obesity Surgical History No pertinent past surgical history Social History Smoking and tobacco/nicotine status: former use of tobacco/nicotine Vitals/I&O/Wt Last Vital Signs Temp 97.6 F 11/24/24 19:00 Pulse 65 11/24/24 19:00 Resp 15 11/24/24 19:00 BP 121/79 11/24/24 19:00 Pulse Ox 96 11/24/24 19:00 O2 Del Method Room Air 11/24/24 19:00 11/24/24 11/24/24 11/24/24 06:59 14:59 22:59 Intake Total 360 / 360 480 / 840 Balance 360 / 360 480 / 840 Weight last 48 hrs Weight 326 lb Weight 326 lb Physical Exam Narrative: GENERAL: The patient is alert and oriented times three. Not in any acute distress. BMI of 43 HEENT: No significant pallor, icterus or lymphadenopathy.Oral cavity: There are no mucous membrane lesions. NECK: Trachea appears to be central. No masses noted. No JVD or thyromegaly appreciated. RESPIRATORY: Chest is symmetrical. No intercostals muscle retraction or any accessory muscle activation. There is no chest wall tenderness. Breath sounds are heard bilaterally. No rales or rhonchi heard. No evidence of any consolidation. BREASTS: Deferred. HEART: The heart sounds are normal. No S3 or S4. No significant murmurs. No pericardial rub ABDOMEN: No vessel pulsations or distention. No tenderness. No organomegaly appreciated. Bowel sounds are normally heard. : Deferred. RECTAL: Deferred. LYMPHATIC: No lymphadenopathy noted in the neck. EXTREMITIES: No edema or cyanosis. No clubbing. MUSCULOSKELETAL: No acute joint deformities or swelling SKIN: There are no significant rashes or ecchymosis NEUROPSYCHIATRIC: The patient is alert and oriented x3. Appears to be in a good mood. No tremors or rigidity noted. Data 11/24/24 08:06 11/24/24 08:06 Other Labs: Laboratory Last Values WBC 6.90 10^3/uL (3.29-11.43) 11/24/24 08:06 RBC 4.60 10^6/uL (3.85-5.65) 11/24/24 08:06 Hgb 14.40 g/dL (11.27-16.99) 11/24/24 08:06 Hct 42.1 % (37-53) 11/24/24 08:06 MCV 91.5 fl (82-101) 11/24/24 08:06 MCH 31.3 pg (27-33) 11/24/24 08:06 MCHC 34.2 g/dL (30-55) 11/24/24 08:06 RDW 12.4 % (12.1-15.1) 11/24/24 08:06 Plt Count 234 10^3/cmm (157-399) 11/24/24 08:06 MPV 9.9 fL (7.4-10.4) 11/24/24 08:06 Neut % (Auto) 54.0 % 11/24/24 08:06 Lymph % (Auto) 34.5 % 11/24/24 08:06 [place] % (Auto) 8.0 % 11/24/24 08:06 Eos % (Auto) 2.0 % 11/24/24 08:06 Baso % (Auto) 1.2 % 11/24/24 08:06 Neut # (Auto) 3.73 10^3/uL (1.8-7.7) 11/24/24 08:06 Lymph # (Auto) 2.4 10^3/uL (0.8-4.8) 11/24/24 08:06 [place] # (Auto) 0.6 10^3/uL (0.2-0.9) 11/24/24 08:06 Eos # (Auto) 0.1 10^3/uL (0.0-0.8) 11/24/24 08:06 Baso # (Auto) 0.1 10^3/uL (0.0-0.1) 11/24/24 08:06 Nucleated RBC % (auto) 0 % 11/24/24 08:06 Nucleated RBCs # 0.0 /100WBC 11/24/24 08:06 Sodium 140 mmol/L (136-145) 11/24/24 08:06 Potassium 4.3 mmol/L (3.5-5.1) 11/24/24 08:06 Chloride 105 mmol/L (98-107) 11/24/24 08:06 Carbon Dioxide 26 mmol/L (22-29) 11/24/24 08:06 Anion Gap 13.3 (5-19) 11/24/24 08:06 BUN 14 mg/dL (6-20) 11/24/24 08:06 Creatinine 0.8 mg/dL (0.7-1.2) 11/24/24 08:06 GFR Calculation 101.5 mL/min (90-130) 11/24/24 08:06 Glucose 99 mg/dL (65-115) 11/24/24 08:06 Calculated Osmolality 291 mOsm/kg (285-295) 11/24/24 08:06 Calcium 10.2 mg/dL (8.5-10.5) 11/24/24 08:06 Total Bilirubin 0.6 mg/dL (0.15-1.2) 11/24/24 08:06 AST 20 U/L (0-40) 11/24/24 08:06 ALT 28 U/L (0-41) 11/24/24 08:06 Alkaline Phosphatase 122 U/L (40-130) 11/24/24 08:06 Troponin T Baseline 8 ng/L (0-15) 11/24/24 08:06 Troponin T 120 Minute 6.39 ng/L (0-15) 11/24/24 09:58 Delta Troponin T -1.61 ABS# (0-10) L 11/24/24 09:58 Troponin T Hi Sens 6Hr 6.00 ng/L (0-15) 11/24/24 13:50 Troponin T Hi Sens 6Hr Delta -2.00 ng/L (0-12) L 11/24/24 13:50 Total Protein 7.2 g/dL (6.6-8.7) 11/24/24 08:06 Albumin 4.8 g/dL (3.5-5.2) 11/24/24 08:06 Globulin 2.4 g/dL (1.3-4.6) 11/24/24 08:06 TSH 2.01 uIU/mL (0.27-4.20) 11/24/24 08:06 Urine Color Yellow (Yellow) 11/24/24 14:43 Urine Appearance Clear (CLEAR) 11/24/24 14:43 Urine pH 7.0 (5-7) 11/24/24 14:43 Ur Specific [place] 1.025 (1.005-1.030) 11/24/24 14:43 Urine Protein Negative (Negative) 11/24/24 14:43 Urine Glucose (UA) Negative (Normal) 11/24/24 14:43 Urine Ketones Negative (Negative) 11/24/24 14:43 Urine Blood Negative (Negative) 11/24/24 14:43 Urine Nitrate Negative (Negative) 11/24/24 14:43 Urine Bilirubin Negative (Negative) 11/24/24 14:43 Urine Urobilinogen 1.0 mg/dL (Negative) 11/24/24 14:43 Ur Leukocyte Esterase Negative (Negative) 11/24/24 14:43 Urine RBC 0-2 /hpf (0-2) 11/24/24 14:43 Urine WBC 0-5 /hpf (0-5) 11/24/24 14:43 Ur Squamous Epith Cells 0-5 /hpf (0-5) 11/24/24 14:43 Amorphous Sediment Not Reportable 11/24/24 14:43 Urine Bacteria None seen /hpf (NONE) 11/24/24 14:43 Hyaline Casts 0.81 /lpf 11/24/24 14:43 Other data: EKG from today 11/24/2024 Sinus bradycardia with sinus arrhythmia, heart rate of [address]-T changes Echocardiogram on 08/28/2024 LV systolic function is normal with 60-65% Mild mitral regurgitation Mild tricuspid regurgitation No comparison studies are available. A&P Assessment and plan (1) Asymptomatic bradycardia: The patient may have some sinus node dysfunction. But the bradycardia could be accentuated with possible sleep apnea along with the beta-faraz. Patient seems to be totally asymptomatic since he did not have any bradycardic episodes during the daytime. (2) Recurrent cerebrovascular accidents (CVAs): Etiology? Accelerated hypertension? Blood pressure is currently in the normal range (3) Dyslipidemia: Continue the current medication (4) Benign hypertension: Continue on the current medications except the metoprolol. If the blood pressure goes up, we may need to start another antihypertensive medication, since the patient is already on the maximum dose of amlodipine and losartan (5) Morbid obesity: Importance of lifestyle modification was discussed with the patient Plan If the patient remains stable, may be discharged home in the morning and continue the event monitor. Need to expedite the sleep study. Hold off on the metoprolol at this time Patient on the clinical progress, further recommendations will be made. Thank you for the opportunity to evaluate this patient and make these recommendations PDMP PDMP Reviewed: Not Reviewed Coding Level of Care Code 68089 Diagnoses Asymptomatic bradycardia R00.1 Recurrent cerebrovascular accidents (CVAs) I63.9 Dyslipidemia E78.5 Benign hypertension I10 Morbid obesity E66.01
[2024-11-24] MEDS: atorvastatin 40 mg Tablet PO (21:11)
--- NOTE | 2024-11-25 00:11 | PC.NURSE ---
Patient has not had a cardiac pause but his HR is continuously slow. At beginning of shift he was in the 60-70 but he has slowly started to decline into the 40 and just hit 33. Not sustaining at 33 but at times is sustaining in the 40-50. BP is 133/77. Dr Kramer notified his reply: Ok lets keep on tele. Since bp is ok and no symptoms we will continue to monitor for now. Also would not let get up without assistance at least for tonight Patient was given a urinal and educated on impotance of using call light if he feels the need to get out of bed. Patient verbalized understanding.
--- NOTE | 2024-11-25 01:14 | PC.NURSE ---
Patient O2 dropped down to 74, 2L NC applied to patient.
[2024-11-25 04:00] VITALS: BP 136/90; PULSE 66; RESP 14; TEMP 36.4; O2SAT 99
[2024-11-25 05:17] LABS: Blood Urea Nitrogen 13 mg/dL (6-20); Calcium 9.7 mg/dL (8.5-10.5); Carbon Dioxide 25 mmol/L (22-29); Chloride 108 mmol/L (98-107); Creatinine Clr Calc Pharmacy 190.4648; Glomerular Filtration Rate 118.4 mL/min (90-130); Glucose 91 mg/dL (65-115); Osmolality Calculated 294 mOsm/kg (285-295); Sodium 142 mmol/L (136-145); Thyroid Stimulating Hormone 2.29 uIU/mL (0.27-4.20)
[2024-11-25 05:24] LABS: Anion Gap 13.4 (5-19); Potassium 4.4 mmol/L (3.5-5.1)
[2024-11-25 05:43] VITALS: PULSE 73
[2024-11-25 07:17] VITALS: BP 124/81; PULSE 57; RESP 16; TEMP 36.7; O2SAT 98
[2024-11-25 08:58] VITALS: BP 138/87
[2024-11-25] MEDS: ticagrelor 90 mg Tablet PO (08:58)
[2024-11-25] MEDS: aspirin 81 mg EC Tablet PO (08:58)
[2024-11-25] MEDS: amlodipine 10 mg Tablet PO (08:58)
[2024-11-25] MEDS: losartan 50 mg Tablet PO (08:58)
--- NOTE | 2024-11-25 09:31 | P.PN_ITS ---
Subjective 2 Subjective: Patient was found to have some episodes of bradycardia on the monitor. Heart rate was in the 40s and asymptomatic. 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 No significant pauses. Medications: Medication Review Details: Current Medications Amlodipine Besylate (Amlodipine 10 Mg Tablet) 10 mg PO DAILY [facility] Last Admin: 11/25/24 08:58 Dose: 10 mg Aspirin (Aspirin 81 Mg Ec Tablet) 81 mg PO DAILY [facility] Last Admin: 11/25/24 08:58 Dose: 81 mg Atorvastatin Calcium (Atorvastatin 40 Mg Tablet) 40 mg PO BEDTIME [facility] Last Admin: 11/24/24 21:11 Dose: 40 mg Losartan Potassium (Losartan 50 Mg Tablet) 50 mg PO BID [facility] Last Admin: 11/25/24 08:58 Dose: 50 mg Ticagrelor (Ticagrelor 90 Mg Tablet) 90 mg PO BID [facility] Last Admin: 11/25/24 08:58 Dose: 90 mg Vitals/I&O/Wt Last Vital Signs Temp 98.0 F 11/25/24 07:17 Pulse 57 L 11/25/24 07:17 Resp 16 11/25/24 07:17 BP 138/87 11/25/24 08:58 Pulse Ox 98 11/25/24 07:17 O2 Del Method Room Air 11/25/24 07:17 11/24/24 11/25/24 11/25/24 22:59 06:59 14:59 Intake Total 960 / 1320 100 / 1420 480 / 480 Output Total 800 / 800 Balance 960 / 1320 -700 / 620 480 / 480 Weight last 48 hrs Weight 337 lb Weight 326 lb Weight 326 lb Physical Exam 2 Narrative: GENERAL: The patient is alert and oriented times three. Not in any acute distress. BMI of 43 HEENT: No significant pallor, icterus or lymphadenopathy.Oral cavity: There are no mucous membrane lesions. NECK: Trachea appears to be central. No masses noted. No JVD or thyromegaly appreciated. RESPIRATORY: Chest is symmetrical. No intercostals muscle retraction or any accessory muscle activation. There is no chest wall tenderness. Breath sounds are heard bilaterally. No rales or rhonchi heard. No evidence of any consolidation. BREASTS: Deferred. HEART: The heart sounds are normal. No S3 or S4. No significant murmurs. No pericardial rub ABDOMEN: No vessel pulsations or distention. No tenderness. No organomegaly appreciated. Bowel sounds are normally heard. : Deferred. RECTAL: Deferred. LYMPHATIC: No lymphadenopathy noted in the neck. EXTREMITIES: No edema or cyanosis. No clubbing. MUSCULOSKELETAL: No acute joint deformities or swelling SKIN: There are no significant rashes or ecchymosis NEUROPSYCHIATRIC: The patient is alert and oriented x3. Appears to be in a good mood. No tremors or rigidity noted. Data 11/24/24 08:06 11/25/24 04:00 Other Labs: Laboratory Last Values WBC 6.90 10^3/uL (3.29-11.43) 11/24/24 08:06 RBC 4.60 10^6/uL (3.85-5.65) 11/24/24 08:06 Hgb 14.40 g/dL (11.27-16.99) 11/24/24 08:06 Hct 42.1 % (37-53) 11/24/24 08:06 MCV 91.5 fl (82-101) 11/24/24 08:06 MCH 31.3 pg (27-33) 11/24/24 08:06 MCHC 34.2 g/dL (30-55) 11/24/24 08:06 RDW 12.4 % (12.1-15.1) 11/24/24 08:06 Plt Count 234 10^3/cmm (157-399) 11/24/24 08:06 MPV 9.9 fL (7.4-10.4) 11/24/24 08:06 Neut % (Auto) 54.0 % 11/24/24 08:06 Lymph % (Auto) 34.5 % 11/24/24 08:06 [place] % (Auto) 8.0 % 11/24/24 08:06 Eos % (Auto) 2.0 % 11/24/24 08:06 Baso % (Auto) 1.2 % 11/24/24 08:06 Neut # (Auto) 3.73 10^3/uL (1.8-7.7) 11/24/24 08:06 Lymph # (Auto) 2.4 10^3/uL (0.8-4.8) 11/24/24 08:06 [place] # (Auto) 0.6 10^3/uL (0.2-0.9) 11/24/24 08:06 Eos # (Auto) 0.1 10^3/uL (0.0-0.8) 11/24/24 08:06 Baso # (Auto) 0.1 10^3/uL (0.0-0.1) 11/24/24 08:06 Nucleated RBC % (auto) 0 % 11/24/24 08:06 Nucleated RBCs # 0.0 /100WBC 11/24/24 08:06 Sodium 142 mmol/L (136-145) 11/25/24 04:00 Potassium 4.4 mmol/L (3.5-5.1) 11/25/24 04:00 Chloride 108 mmol/L (98-107) H 11/25/24 04:00 Carbon Dioxide 25 mmol/L (22-29) 11/25/24 04:00 Anion Gap 13.4 (5-19) 11/25/24 04:00 BUN 13 mg/dL (6-20) 11/25/24 04:00 Creatinine 0.7 mg/dL (0.7-1.2) 11/25/24 04:00 GFR Calculation 118.4 mL/min (90-130) 11/25/24 04:00 Glucose 91 mg/dL (65-115) 11/25/24 04:00 Calculated Osmolality 294 mOsm/kg (285-295) 11/25/24 04:00 Calcium 9.7 mg/dL (8.5-10.5) 11/25/24 04:00 Magnesium 2.0 mg/dL (1.7-2.3) 11/25/24 04:00 Total Bilirubin 0.6 mg/dL (0.15-1.2) 11/24/24 08:06 AST 20 U/L (0-40) 11/24/24 08:06 ALT 28 U/L (0-41) 11/24/24 08:06 Alkaline Phosphatase 122 U/L (40-130) 11/24/24 08:06 Troponin T Baseline 8 ng/L (0-15) 11/24/24 08:06 Troponin T 120 Minute 6.39 ng/L (0-15) 11/24/24 09:58 Delta Troponin T -1.61 ABS# (0-10) L 11/24/24 09:58 Troponin T Hi Sens 6Hr 6.00 ng/L (0-15) 11/24/24 13:50 Troponin T Hi Sens 6Hr Delta -2.00 ng/L (0-12) L 11/24/24 13:50 Total Protein 7.2 g/dL (6.6-8.7) 11/24/24 08:06 Albumin 4.8 g/dL (3.5-5.2) 11/24/24 08:06 Globulin 2.4 g/dL (1.3-4.6) 11/24/24 08:06 TSH 2.29 uIU/mL (0.27-4.20) 11/25/24 04:00 Urine Color Yellow (Yellow) 11/24/24 14:43 Urine Appearance Clear (CLEAR) 11/24/24 14:43 Urine pH 7.0 (5-7) 11/24/24 14:43 Ur Specific [place] 1.025 (1.005-1.030) 11/24/24 14:43 Urine Protein Negative (Negative) 11/24/24 14:43 Urine Glucose (UA) Negative (Normal) 11/24/24 14:43 Urine Ketones Negative (Negative) 11/24/24 14:43 Urine Blood Negative (Negative) 11/24/24 14:43 Urine Nitrate Negative (Negative) 11/24/24 14:43 Urine Bilirubin Negative (Negative) 11/24/24 14:43 Urine Urobilinogen 1.0 mg/dL (Negative) 11/24/24 14:43 Ur Leukocyte Esterase Negative (Negative) 11/24/24 14:43 Urine RBC 0-2 /hpf (0-2) 11/24/24 14:43 Urine WBC 0-5 /hpf (0-5) 11/24/24 14:43 Ur Squamous Epith Cells 0-5 /hpf (0-5) 11/24/24 14:43 Amorphous Sediment Not Reportable 11/24/24 14:43 Urine Bacteria None seen /hpf (NONE) 11/24/24 14:43 Hyaline Casts 0.81 /lpf 11/24/24 14:43 A&P Assessment and plan (1) Asymptomatic bradycardia: The patient may have some sinus node dysfunction. But the bradycardia could be accentuated with possible sleep apnea along with the beta-faraz. Patient seems to be totally asymptomatic since he did not have any bradycardic episodes during the daytime. Has not had any significant pauses on monitor. The metoprolol succinate may still have a role for the bradycardiia. May continue to hold the metoprolol succinate at this time. Blood pressure also need to be closely monitored. (2) Recurrent cerebrovascular accidents (CVAs): Etiology? Accelerated hypertension? Blood pressure is currently in the normal range (3) Dyslipidemia: Continue the current medication (4) Benign hypertension: Continue on the current medications except the metoprolol. If the blood pressure goes up, we may need to start another antihypertensive medication, since the patient is already on the maximum dose of amlodipine and losartan The blood pressure seems to be staying in the normal range. (5) Morbid obesity: Importance of lifestyle modification was discussed with the patient Plan Discussed with Dr. Wilkinson. At this point, the patient may not require any further intervention. If he remains stable, may be discharged home to continue the monitoring I may see him in the office in a month May expedite the sleep study PDMP PDMP Reviewed: Not Reviewed Attestations 2 Medical Necessity Statement*: Possible discharge home today Coding Level of Care Code 00327 Diagnoses Asymptomatic bradycardia R00.1 Recurrent cerebrovascular accidents (CVAs) I63.9 Dyslipidemia E78.5 Benign hypertension I10 Morbid obesity E66.01
--- NOTE | 2024-11-25 10:39 | PM.DCS ---
Discharge Providers Date of Admission: 11/24/24 12:56 Date of Discharge: November 25, 2024 Attending Provider at Admission: Danya Wilkinson MD Attending Provider at Discharge: Danya Wilkinson MD Diagnoses at Discharge Discharge Diagnosis (1) Asymptomatic bradycardia: Status: Acute (2) Recurrent cerebrovascular accidents (CVAs): Status: Acute (3) Dyslipidemia: Status: Acute (4) Benign hypertension: Status: Acute (5) Morbid obesity: Status: Acute Reason for Visit Reason for Visit: abnormal Heart monitor reading sent from h/c Brief History: Jose Ramon Sebastian is a 54 year old male with past medical history of hypertension, obesity, who has a history of CVA with right-sided weakness, which has improved, from a CVA back in August 2024, not a TNKase candidate was imformed to come to ER for abnormal holter readings. He was recently admitted on 11/10/24 for right-sided weakness. Was evaluated for stroke but CT head showed no evidence of intracranial hemorrhage or mass effect. Since this was the second episode of questionable stroke, he was discharged home with Holter monitor for 30 days. This morning he was informed by the [facility] about the sinus pauses and recommended to come to ER for further evaluation. On Holter recordings he was found to have sinus pauses x 2, 3.3 seconds and 4.1 seconds respectively. He denies any complaint of chest pain, shortness of breath, dizziness, palpitations, nausea/vomiting. He was all well, got up this morning at 5 AM, took his home medications including aspirin, atorvastatin, losartan, metoprolol, Brilinta and amlodipine and went to work. He received a call from the [facility] while he was at work. Hospital Course Hospital Course 54 year old male with past medical history of hypertension, obesity, who has a history of CVA with right-sided weakness, which has improved, from a CVA back in August 2024, not a TNKase candidate was imformed to come to ER for abnormal holter readings. This morning he was informed by the [facility] about the sinus pauses and recommended to come to ER for further evaluation. On Holter recordings he was found to have sinus pauses x 2, 3.3 seconds and 4.1 seconds respectively. #Asymptomatic sinus pauses-etiology unknown/medication induced He was started on p.o. metoprolol 25 mg daily last admission on 11/10/24. Initial EKG was normal sinus rhythm, no acute ST-T changes Repeat EKG showed sinus bradycardia at 58 bpm with sinus arrhythmia, no acute ST-T changes Will admit to [facility] Continue cardiac telemetry monitoring Hold p.o. 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 Cardiology consulted in ED, follow-up for further recommendation Labs reviewed and are acceptable. #Right-sided CVA-no residual deficits except limping and right lower extremity Patient goes for PT twice a week Will get inpatient PT eval and treat He was doing well, no more sinus pauses noted on telemetry. His HR sometimes drooped to 40-50's but asymptomatic. Will discharge him today to continue with event monitor and discontinue metoprolol. Physical Exam Narrative: He is alert awake oriented x 3, obese, not in acute distress Chest clear to auscultation bilaterally Cardiovascular normal heart sounds no murmurs Abdomen soft nontender nondistended normal bowel sounds Extremities no edema noted bilateral lower extremity Neurological 5/5 power in upper and lower extremities, no sensory deficits. He has no residual deficits but just has minimal limp in right lower extremity while walking Discharge Data Studies Completed and Pending Completed Studies During Hospitalization Category Date Time Status XR chest 1V portable [id number] Stat Exams 11/24/24 07:54 Completed Radiology Impressions Chest X-Ray 11/24/24 07:54 IMPRESSION: 1. No acute cardiopulmonary process. Laboratory Results WBC 6.90 10^3/uL (3.29-11.43) 11/24/24 08:06 RBC 4.60 10^6/uL (3.85-5.65) 11/24/24 08:06 Hgb 14.40 g/dL (11.27-16.99) 11/24/24 08:06 Hct 42.1 % (37-53) 11/24/24 08:06 MCV 91.5 fl (82-101) 11/24/24 08:06 MCH 31.3 pg (27-33) 11/24/24 08:06 MCHC 34.2 g/dL (30-55) 11/24/24 08:06 RDW 12.4 % (12.1-15.1) 11/24/24 08:06 Plt Count 234 10^3/cmm (157-399) 11/24/24 08:06 MPV 9.9 fL (7.4-10.4) 11/24/24 08:06 Neut % (Auto) 54.0 % 11/24/24 08:06 Lymph % (Auto) 34.5 % 11/24/24 08:06 [place]ne % (Auto) 8.0 % 11/24/24 08:06 Eos % (Auto) 2.0 % 11/24/24 08:06 Baso % (Auto) 1.2 % 11/24/24 08:06 Neut # (Auto) 3.73 10^3/uL (1.8-7.7) 11/24/24 08:06 Lymph # (Auto) 2.4 10^3/uL (0.8-4.8) 11/24/24 08:06 [place]ne # (Auto) 0.6 10^3/uL (0.2-0.9) 11/24/24 08:06 Eos # (Auto) 0.1 10^3/uL (0.0-0.8) 11/24/24 08:06 Baso # (Auto) 0.1 10^3/uL (0.0-0.1) 11/24/24 08:06 Nucleated RBC % (auto) 0 % 11/24/24 08:06 Nucleated RBCs # 0.0 /100WBC 11/24/24 08:06 Sodium 142 mmol/L (136-145) 11/25/24 04:00 Potassium 4.4 mmol/L (3.5-5.1) 11/25/24 04:00 Chloride 108 mmol/L (98-107) H 11/25/24 04:00 Carbon Dioxide 25 mmol/L (22-29) 11/25/24 04:00 Anion Gap 13.4 (5-19) 11/25/24 04:00 BUN 13 mg/dL (6-20) 11/25/24 04:00 Creatinine 0.7 mg/dL (0.7-1.2) 11/25/24 04:00 GFR Calculation 118.4 mL/min (90-130) 11/25/24 04:00 Glucose 91 mg/dL (65-115) 11/25/24 04:00 Calculated Osmolality 294 mOsm/kg (285-295) 11/25/24 04:00 Calcium 9.7 mg/dL (8.5-10.5) 11/25/24 04:00 Magnesium 2.0 mg/dL (1.7-2.3) 11/25/24 04:00 Total Bilirubin 0.6 mg/dL (0.15-1.2) 11/24/24 08:06 AST 20 U/L (0-40) 11/24/24 08:06 ALT 28 U/L (0-41) 11/24/24 08:06 Alkaline Phosphatase 122 U/L (40-130) 11/24/24 08:06 Troponin T Baseline 8 ng/L (0-15) 11/24/24 08:06 Troponin T 120 Minute 6.39 ng/L (0-15) 11/24/24 09:58 Delta Troponin T -1.61 ABS# (0-10) L 11/24/24 09:58 Troponin T Hi Sens 6Hr 6.00 ng/L (0-15) 11/24/24 13:50 Troponin T Hi Sens 6Hr Delta -2.00 ng/L (0-12) L 11/24/24 13:50 Total Protein 7.2 g/dL (6.6-8.7) 11/24/24 08:06 Albumin 4.8 g/dL (3.5-5.2) 11/24/24 08:06 Globulin 2.4 g/dL (1.3-4.6) 11/24/24 08:06 TSH 2.29 uIU/mL (0.27-4.20) 11/25/24 04:00 Urine Color Yellow (Yellow) 11/24/24 14:43 Urine Appearance Clear (CLEAR) 11/24/24 14:43 Urine pH 7.0 (5-7) 11/24/24 14:43 Ur Specific [place] 1.025 (1.005-1.030) 11/24/24 14:43 Urine Protein Negative (Negative) 11/24/24 14:43 Urine Glucose (UA) Negative (Normal) 11/24/24 14:43 Urine Ketones Negative (Negative) 11/24/24 14:43 Urine Blood Negative (Negative) 11/24/24 14:43 Urine Nitrate Negative (Negative) 11/24/24 14:43 Urine Bilirubin Negative (Negative) 11/24/24 14:43 Urine Urobilinogen 1.0 mg/dL (Negative) 11/24/24 14:43 Ur Leukocyte Esterase Negative (Negative) 11/24/24 14:43 Urine RBC 0-2 /hpf (0-2) 11/24/24 14:43 Urine WBC 0-5 /hpf (0-5) 11/24/24 14:43 Ur Squamous Epith Cells 0-5 /hpf (0-5) 11/24/24 14:43 Amorphous Sediment Not Reportable 11/24/24 14:43 Urine Bacteria None seen /hpf (NONE) 11/24/24 14:43 Hyaline Casts 0.81 /lpf 11/24/24 14:43 Vitals Last Vital Signs Temp 98.0 F 11/25/24 07:17 Pulse 57 L 11/25/24 07:17 Resp 16 11/25/24 07:17 BP 138/87 11/25/24 08:58 Pulse Ox 98 11/25/24 07:17 O2 Del Method Room Air 11/25/24 07:17 Discharge Plan Discharge Patient Disposition: Home Condition: Stable Prescriptions: Continued losartan 50 mg tablet 50 mg PO BID atorvastatin 40 mg tablet 40 mg PO BEDTIME aspirin 81 mg tablet,delayed release (DR/EC) 81 mg PO DAILY amlodipine 10 mg tablet 10 mg PO DAILY Brilinta 90 mg tablet 90 mg PO BID 30 Days Qty: 60 0RF Discontinued metoprolol succinate 25 mg tablet extended release 24 hr 25 mg PO DAILY Discharge Orders: Discharge Order (Routine); Ordered 11/25/24 Ordered By: Danya Wilkinson Referrals: KristiAlthea, HEALTH PROMOTION COORDINATOR [Nurse Practitioner] - 4-7 days Discharge Diet: Cardiac Discharge Activity: Increase activity as tolerated and May return to work/school without restrictions Patient Instructions: Opioid Safety Activity Restrictions/Additional Instructions: Patient was being monitored for abnormal heart rhythm for 24 hours, no acute events noted. he is doing well, will dischargeand he can return to work with no restrictions Discharge Attestations Time Spent in Discharge Care*: less than 30 min Quality Metrics Clinical Quality Measures [ No reported AMI, CVA or VTE this stay] Coding Level of Care Code Acute Code for Chg Fwd Diagnoses Asymptomatic bradycardia R00.1 Recurrent cerebrovascular accidents (CVAs) I63.9 Dyslipidemia E78.5 Benign hypertension I10 Morbid obesity E66.01 Time Spent (min) 10
--- NOTE | 2024-11-25 10:42 | PC.CHAP ---
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 visit [] Patient/Family/Request visit [] Outpatient visit [] Follow-up visit [] Physician referral [] Code/Alert [x] Routine visit [] Staff referral [] Actively dying [] Patient sleeping [] Family support [] [] Out of room [] Palliative care [] [] Receiving care in room [] Pre-surgical visit [] Trauma [] Long length of stay [] ICU visit [] Other: Relational/Emotional Strength [x] Patient feels connected with others/family/visitors/staff [] Distress [] Loneliness/isolation [] Abandonment Spirituality of Patient [x] Person of Mercedes [] Attends Sikhism of their Mercedes [x] Believes in Prayer [] Reads Bible or Christian materials [] There are Spiritual issues to be addressed Nozzleman Interventions [x] Prayer [] Active listening [] Non-anxious presence [x] Spiritual/emotional support [] Crisis/trauma care [] Spiritual counseling [] Bereavement support [] Provided bereavement packet [] Provided Bible/devotional materials [] Provided toy/stuffed animal, coloring book to patient or family member [] Provided Communion [] Anointing/[place] [] Salvation [x] Completed spiritual assessment [] Other: Impact on Illness or Injury [] Angry [] Fearful [] Anxious [] Often cries [] Exhaustion [] Unable to work [] Unable to attend oriental orthodox [] Unable to walk/stand [] Unable to read [] Unable to drive [] Unable to eat/drink [] Unable to sleep [] Unable to be with family [] Patient intubated [] Other: Summary Time spent with patient 5 min
[2024-11-25 11:27] VITALS: BP 133/93; PULSE 70; RESP 12; O2SAT 98
[2024-11-25 11:56] VITALS: BP 153/93; PULSE 75; RESP 18; TEMP 36.7; O2SAT 95
--- NOTE | 2024-11-26 07:56 | PC.NURSE ---
systems coordinator rounds at 0900- patient sitting on the edge of the bed dressed, ready to discharge soon
== END 2024-11-25 11:36 | disposition home or self-care (01) ==
LOC: ER 09:56 → CSU 12:45 → ER IP 11-25 05:18
PROVIDERS: Admitting Provider Internal Medicine; Emergency Provider Family Medicine; Visit Provider Internal Medicine
DX: R00.1 Bradycardia, unspecified (principal); E78.5 Hyperlipidemia, unspecified; I10 Essential (primary) hypertension; E66.01 Morbid (severe) obesity due to excess calories; Z68.41 Body mass index [BMI] 40.0-44.9, adult; Z79.82 Long term (current) use of aspirin; Z87.891 Personal history of nicotine dependence; I69.951 Hemiplegia and hemiparesis following unspecified cerebrovascular disease affecting right dominant side; I49.5 Sick sinus syndrome
CPT/HCPCS: 36415; 71045; 80048; 80053; 81001; 83735; 84443; 84484; 85025; 93005; 97161; 99285; A9270; G0378; J9999

== ENCOUNTER 2024-12-04 05:00 | Outpatient (RCR) | payer OTHER, SELFPAY | END 2025-01-03 23:55 | disposition home or self-care (01) | LOC: SPT 05:00 | DX: I63.9 Cerebral infarction, unspecified (principal); R53.1 Weakness | CPT/HCPCS: 97110; 97112; 97530 ==

== ENCOUNTER 2025-01-04 05:00 | Outpatient (RCR) | payer OTHER, SELFPAY | END 2025-01-27 14:02 | disposition home or self-care (01) | LOC: SPT 05:00 | DX: I63.9 Cerebral infarction, unspecified (principal); R53.1 Weakness; R26.89 Other abnormalities of gait and mobility | CPT/HCPCS: 97110; 97112; 97530 ==